=== PATIENT | female | born 1935 | race Caucasian/White ===

== ENCOUNTER → 2016-11-07 | Outpatient (CLI) | payer MEDICARE, BC ==
--- NOTE | 2016-11-08 15:38 | MM ---
Reason for exam: screening (asymptomatic). Last mammogram was performed 1 year and 7 months ago. History: Patient is postmenopausal and has history of other cancer at age 67. Benign excisional biopsy of the left breast, 1987. Took hormonal contraceptives for 2 years beginning at age 29. Physical Findings: A clinical breast exam by your physician is recommended on an annual basis and results should be correlated with mammographic findings. MG 3D Screening Mammo W/Cad Bilateral CC and MLO view(s) were taken. Prior study comparison: March 31, 2015, bilateral MG screening mammo w CAD. February 23, 2014, bilateral MG screening mammo w CAD. There are scattered fibroglandular densities. There is chronic nodularity bilaterally. Asymmetric breast tissue in the right breast. Very complex parenchymal pattern. ASSESSMENT: Incomplete: need additional imaging evaluation, BI-RAD 0 RECOMMENDATION: Ultrasound of the right breast. (upper outer quadrant, 5.5cm from nipple) [facility] will attempt to contact patient to return for ultrasound.
== END | disposition home or self-care (01) ==
LOC: RADMAMWWP 11:06
PROVIDERS: ATTEND Internal Medicine
DX: Z12.31 Encounter for screening mammogram for malignant neoplasm of breast (principal); R92.2 Inconclusive mammogram
CPT/HCPCS: 77063; G0202

== ENCOUNTER → 2016-11-26 | Outpatient (CLI) | payer MEDICARE, BC ==
--- NOTE | 2016-11-26 13:46 | USB ---
Reason for exam: additional evaluation requested from abnormal screening. History: Patient is postmenopausal and has history of other cancer at age 67. Benign excisional biopsy of the left breast, 1987. Took hormonal contraceptives for 2 years beginning at age 29. Physical Findings: Nurse did not find any significant physical abnormalities on exam. US Breast Workup Limited RT Right breast ultrasound demonstrates a 0.3 x 0.2 x 0.2cm too small to characterize lesion at 9 o'clock, a 0.3 x 0.3 x 0.3cm mixed lesion at 10 o'clock, a 0.4 x 0.3 x 0.2cm oval, cystic lesion at 10 o'clock, and a 0.5 x 0.3 x 0.2cm oval, cystic lesion at 12 o'clock. These results were verbally communicated with the patient and result sheet given to the patient on 11/26/16. ASSESSMENT: Probably benign, BI-RAD 3 RECOMMENDATION: Follow-up diagnostic mammogram and ultrasound of the right breast in 6 months.
== END | disposition home or self-care (01) ==
LOC: RADUSWWP 08:35
PROVIDERS: ATTEND Internal Medicine
DX: R92.8 Other abnormal and inconclusive findings on diagnostic imaging of breast (principal)

== ENCOUNTER → 2017-11-10 | Outpatient (CLI) | payer MEDICARE, BC ==
--- NOTE | 2017-11-10 11:30 | MM ---
Reason for exam: additional evaluation requested from prior study. Last mammogram was performed 1 year ago. History: Patient is postmenopausal and has history of other cancer at age 67. Benign excisional biopsy of the left breast, 1987. Took hormonal contraceptives for 2 years beginning at age 29. Physical Findings: Nurse did not find any significant physical abnormalities on exam. MG 3D Diag Mammo W/Cad JUAN DIEGO Bilateral CC and MLO view(s) were taken. Prior study comparison: November 07, 2016, bilateral MG 3d screening mammo w/cad. March 31, 2015, bilateral MG screening mammo w CAD. There are scattered fibroglandular densities. Asymmetric breast tissue in the left breast at 3 o'clock. These results were verbally communicated with the patient and result sheet given to the patient on 11/10/17. ASSESSMENT: Incomplete: need additional imaging evaluation, BI-RAD 0 RECOMMENDATION: Ultrasound of the left breast.
--- NOTE | 2017-11-10 11:32 | USB ---
Reason for exam: additional evaluation requested from abnormal screening. History: Patient is postmenopausal and has history of other cancer at age 67. Benign excisional biopsy of the left breast, 1987. Took hormonal contraceptives for 2 years beginning at age 29. US Breast Limited LT Left limited breast ultrasound including focal area of concern, retroareolar and axilla demonstrates a 0.4 x 0.5 x 0.3cm oval, cystic lesion at 3 o'clock, a 0.5 x 05 x 0.3cm lobular, cystic lesion at 3 o'clock, a hyperechoic calcifications at 4 o'clock and duct ectasia at the posterior nipple. These results were verbally communicated with the patient and result sheet given to the patient on 11/10/17. ASSESSMENT: Probably benign, BI-RAD 3 RECOMMENDATION: Follow-up diagnostic mammogram and ultrasound of the left breast in 6 months.
--- NOTE | 2017-11-10 15:22 | BD ---
EXAMINATION TYPE: Axial Bone Density DATE OF EXAM: 11/10/2017 COMPARISON: 2014 CLINICAL HISTORY: bone disorder Height: 5'3 Weight: 148 FRAX RISK QUESTIONS: History of Fracture in Adulthood: y Secondary Osteoporosis: RISK FACTORS HISTORY OF: Family History of Osteoporosis: y Postmenopausal woman: MEDICATIONS: Thyroid Medications: Which medication: Levothyroxine How Lon-6 years Additional Medications: cholesterol Additional History: skin cancer EXAM MEASUREMENTS: Bone mineral densitometry was performed using the [employer] System. Bone mineral density as measured about the Lumbar spine is: ----- L1-L4(G/cm2): 1.086 T Score Values are as follows: ----- L2: -1.8 ----- L3: -1.0 ----- L4: -0.2 ----- L1-L4: -1.0 Bone mineral density has: Decreased -0.8% since study of: 03/31/2015 Bone mineral density about the R hip (g/cm2): 0.969 Bone mineral density about the L hip (g/cm2): 0.883 T Score values are as follows: -----R Neck: -0.5 -----L Neck: -1.1 -----R Total: -0.5 -----L Total: -0.5 Bone mineral density has: Increased 1.3% since study of: 03/31/2015 IMPRESSION: Osteopenia (T Score between -2.5 and -1). There is slightly increased risk of fracture and the patient may be considered for treatment. Re-Screen 2-5 years. NOTE: T-SCORE=SD OF THE YOUNG ADULT MEAN.
== END | disposition home or self-care (01) ==
LOC: RADMAMWWP 09:12
PROVIDERS: ATTEND Internal Medicine
DX: R92.8 Other abnormal and inconclusive findings on diagnostic imaging of breast (principal); M85.80 Other specified disorders of bone density and structure, unspecified site
CPT/HCPCS: 77080; 77066; 76642; G0279; 77062

== ENCOUNTER → 2018-03-30 | Outpatient (CLI) | payer MEDICARE, BC ==
--- NOTE | 2018-03-31 10:22 | MM ---
Reason for exam: follow-up at short interval from prior study. Last mammogram was performed 5 months ago. History: Patient is postmenopausal and has history of other cancer at age 67. Benign excisional biopsy of the left breast, 1987. Took hormonal contraceptives for 2 years beginning at age 29. Physical Findings: Nurse did not find any significant physical abnormalities on exam. MG 3D Diag Mammo W/Cad LT CC, MLO, XCCL, spot compression MLO, and spot compression CC view(s) were taken of the left breast. Prior study comparison: November 10, 2017, bilateral MG 3d diag mammo w/cad JUAN DIEGO. November 07, 2016, bilateral MG 3d screening mammo w/cad. The breast tissue is heterogeneously dense. This may lower the sensitivity of mammography. Stable benign calcifications. Small nodule upper outer quadrant left breast 5.5cm from nipple. Ultrasound recommended. These results were verbally communicated with the patient and result sheet given to the patient on 03/30/18. ASSESSMENT: Incomplete: need additional imaging evaluation, BI-RAD 0 RECOMMENDATION: Ultrasound of the left breast.
--- NOTE | 2018-03-31 10:24 | USB ---
Reason for exam: additional evaluation requested from abnormal screening. History: Patient is postmenopausal, has history of other cancer at age 67, and has history of bilateral breast cancer. Benign excisional biopsy of the left breast, 1987. Took hormonal contraceptives for 2 years beginning at age 29. US Breast Limited LT Left limited breast ultrasound including focal area of concern, retroareolar and axilla demonstrates a 0.5 x 0.4 x 0.2cm cystic lesion at 12 o'clock, a 0.9 x 0.8 x 0.5cm irregular, solid, hypoechoic lesion at 1 o'clock for which a biopsy is recommended, a 0.5 x 0.3 x 0.3cm cystic lesion at 3 o'clock and a 0.5 x 0.5 x 0.2cm cystic lesion at the posterior nipple. These results were verbally communicated with the patient and result sheet given to the patient on 03/30/18. ASSESSMENT: Suspicious, BI-RAD 4 RECOMMENDATION: Ultrasound core biopsy of the left breast. Called Juliane with mammographic findings and has scheduled an appointment for the patient for 04/02/18 at 12:[address] Nash. Biopsy scheduled for 04/08/18 at 12:20. PRELIMINARY REPORT CALLED AND FAXED TO DR. NASH ON 03/31/18.
== END | disposition home or self-care (01) ==
LOC: RADMAMWWP 08:41
PROVIDERS: ATTEND Internal Medicine
DX: R92.8 Other abnormal and inconclusive findings on diagnostic imaging of breast (principal)
CPT/HCPCS: 77065; 76642; G0279; 77061

== ENCOUNTER → 2018-04-02 | Outpatient (CLI) | payer MEDICARE, BC ==
[2018-04-02 12:18] VITALS: BP 142/76; PULSE 98; BMI 24.9
--- NOTE | 2018-04-02 13:04 | P.GSHP ---
History of Present Illness H&P Date: 04/02/18 The patient is an 82-year-old white female who is status post bilateral screening mammogram in October 2017. The patient at that time was recommended to have a repeat left breast mammogram at 6 months time. This was recently performed on . On that study she was noted to have a small nodule in the upper outer quadrant of the left breast 5.5 cm from the nipple. An ultrasound was recommended. On the ultrasound the patient was noted to have a 0.5 cm cystic lesion at 12:00, a 0.9 cm irregular solid lesion at 1:00 for which biopsy was recommended, and a 0.5 cm cystic lesion at 3:00 and a 0.5 cm cystic lesion at the posterior nipple. The patient herself does not feel any lumps or nodules in her breasts. The left nipple has been inverted for many years. The patient has no history of trauma or infection of the breast. Family history: 1. niece; breast cancer, in 40's brothers daughter 2. patient with skin cancer Hormonal history menarche: 10 07/01 : 2, first at 25, breast fed: no BCP: 1 year hormones: none Past surgical history: 1. Skin cancers removed line 2. Colonoscopy 3. left breast biopsy Past medical history: none Social History: smoke: none alcohol: none drugs: none - Constitutional Constitutional: Denies chills, Denies fever - EENT Comment: wears glasses Ears: bilateral: decreased hearing Ears, nose, mouth and throat: Denies headache, Denies sore throat - Breasts Breasts: bilateral: as per HPI - Cardiovascular Cardiovascular: Denies chest pain, Denies shortness of breath - Respiratory Respiratory: Denies cough, Denies 7 - Gastrointestinal Gastrointestinal: Denies abdominal pain, Denies diarrhea, Denies nausea, Denies vomiting - Genitourinary (Female) Genitourinary: Denies dysuria, Denies hematuria - Menstruation Menstruation: Reports postmenopausal - Musculoskeletal Comment: osteopenia Musculoskeletal: Denies myalgias - Integumentary Comment: skin cancers - Neurological Neurological: Denies numbness, Denies weakness - Psychiatric Psychiatric: Denies anxiety, Denies depression - Endocrine Comment: hypothyroid Endocrine: Denies fatigue, Denies weight change - Hematologic/Lymphatic Comment: none - Allergic/Immunologic Allergic/Immunologic: Reports seasonal allergies Past Medical History Past Medical History: Hearing Disorder / Deafness, Osteoarthritis (OA), Skin Disorder, Thyroid Disorder Additional Past Medical History / Comment(s): skin cancers removed. on meds for thyroid disorder History of Any Multi-Drug Resistant Organisms: None Reported Past Surgical History: Breast Surgery, Tonsillectomy Smoking Status: Never smoker - Past Family History Father Family Medical History: Congestive Heart Failure (CHF) Mother Family Medical History: Congestive Heart Failure (CHF), Dementia, Hyperlipidemia Medications and Allergies Home Medications Medication Instructions Recorded Confirmed Type Ascorbic Acid [Vitamin C] 500 mg PO DAILY 04/01/18 04/02/18 History Aspirin [Adult Low Dose Aspirin EC] 81 mg PO DAILY 04/01/18 04/02/18 History Atorvastatin [Lipitor] 10 mg PO HS 04/01/18 04/02/18 History Calcium/Magnesium/Zinc 1 each PO DAILY 04/01/18 04/02/18 History [Bjktnpd-Qdrgtiypp-Zqwm Tablet] Levothyroxine Sodium [Synthroid] 25 mcg PO DAILY 04/01/18 04/02/18 History Vitamin E (Dl,Tocopheryl Acet) 400 unit PO DAILY 04/01/18 04/02/18 History [Vitamin E] Allergies Allergy/AdvReac Type Severity Reaction Status Date / Time codeine Allergy Rash/Hives Verified 04/01/18 13:17 monosodium glutamate [MSG] AdvReac Nausea & Verified 04/01/18 13:17 Vomiting & Diarrhea Surgical - Exam Vital Signs Pulse BP Pulse Ox 98 142/76 98 04/02/18 12:13 04/02/18 12:13 04/02/18 12:13 BMI 24.9 - General well developed, well nourished, no distress - Eyes normal ocular movement - ENT no hearing loss, no congestion - Neck no masses, trachea midline - Respiratory normal respiratory effort, clear to auscultation - Cardiovascular Rhythm: regular Heart Sounds: normal: S1, S2 - Abdomen Abdomen: soft, non tender, no guarding, no rigid, no rebound - Integumentary no rash, no abnormal pigmentation - Neurologic no disoriented, no combative - Musculoskeletal normal gait, normal posture - Psychiatric oriented to time, oriented to person, oriented to place, speech is normal, memory intact Breast examination: Right breast: Multi-positional exam no dominant mass or nodules of concern Right axilla: No adenopathy of concern Left breast: Multiple positional exam no dominant masses or nodules of concern, nipple is slightly inverted Left axilla: No adenopathy of concern Results Left breast mammogram and ultrasound results reviewed Assessment and Plan Assessment: Impression: 1. Radiographic abnormality left breast 2. Inverted nipple left breast chronic Plan: 1. Ultrasound-guided biopsy left breast 2. Follow-up after ultrasound-guided biopsy 3. Follow inverted nipple left breast. This is chronic in nature CC: Dr. Cardozo
== END ==
LOC: WWCWWP 11:49
PROVIDERS: ATTEND Surgery
DX: Z53.9 Procedure and treatment not carried out, unspecified reason (principal)

== ENCOUNTER → 2018-04-08 | Day surgery (SDC) | payer MEDICARE, BC ==
[2018-04-08 11:43] VITALS: RESP 12
[2018-04-08 13:01] VITALS: BP 145/81; PULSE 96; TEMP 98.6
--- NOTE | 2018-04-08 13:05 | USB ---
EXAMINATION TYPE: US biopsy breast VAD LT, MG diagnostic mammo LT wo CAD DATE OF EXAM: 04/08/2018 CLINICAL HISTORY: R92.8 Abnormal Mammogram. TECHNIQUE: Ultrasound guided core biopsy of left breast. COMPARISON: 03/30/18 FINDINGS: The procedure of ultrasound guided core biopsy was explained to the patient. Benefits, alternatives, and risks were discussed. An informed consent was then obtained. Preprocedural timeout was performed. The patient was placed in supine positioning for imaging and for the procedure. The overlying skin was prepped and draped in usual sterile fashion. 10 cc of lidocaine buffered with bicarbonate was used as anesthetic into the skin and 7 cc of lidocaine with epinephrine subcutaneous tissue up to the 1.1 x 0.6 x 0.6 cm mass at the 1:00 position within the left breast. Under ultrasound guidance, a 12-gauge vacuum assisted biopsy gun device was used to obtain 5 core samples. Following this, a coil-shaped biopsy marker was left in lesion. This was placed approximately 4 mm deep and medial to the mass. The patient tolerated the procedure well without any immediate complication. The patient was kept in the radiology department for short stay after the procedure and then discharged home in stable condition. IMPRESSION: Successful, uncomplicated ultrasound guided core biopsy of the 1.1 x 0.6 x 0.6 cm suspicious mass at the 1:00 position within the left breast with biopsy marker noted to be 4 mm from the mass on the last sonographic image, full pathology results to follow. 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 See Surgical Pathology Cancer Case Summary. Recommendation Surgical consult of the left breast. (therapy and follow up) [facility]
== END | disposition home or self-care (01) ==
LOC: RADUSWWP 11:19
PROVIDERS: ATTEND Surgery
DX: C50.912 Malignant neoplasm of unspecified site of left female breast (principal); Z88.5 Allergy status to narcotic agent; Z88.8 Allergy status to other drugs, medicaments and biological substances
CPT/HCPCS: 88305; 77065; 19083; A4648; J2001; 88341; 88342

== ENCOUNTER → 2018-04-16 | Outpatient (CLI) | payer MEDICARE, BC ==
[2018-04-16 10:35] VITALS: BP 145/76; PULSE 96; RESP 16; TEMP 98; BMI 24.9
--- NOTE | 2018-04-16 11:02 | P.PN ---
Subjective Progress Note Date: 04/16/18 Principal diagnosis: Left breast cancer, status post left breast ultrasound core biopsy The patient is an 82-year-old white female status post left breast ultrasound core biopsy. Pathology revealed an approximately 1.1 cm invasive ductal carcinoma. This was grade 1, ER/WI positive, HER-2 negative. The patient has no complaints in the immediate postoperative period related to the core biopsy. Objective - Constitutional General appearance: Present: average body habitus - EENT Eyes: Present: EOMI ENT: Present: hearing grossly normal Ears: bilateral: normal - Neck Neck: Present: normal ROM - Respiratory Respiratory: bilateral: CTA - Cardiovascular Rhythm: regular Heart sounds: normal: S1, S2 - Gastrointestinal General gastrointestinal: Present: soft - Integumentary Integumentary Comment(s): Left breast: Well-healed scar left breast from prior biopsy Left breast mild ecchymosis at site of prior core biopsy No dominant masses or nodules of concern Assessment and Plan Assessment: Impression: 1. T1 N0 M0 ER/WI positive HER-2/negro negative left breast cancer. Plan: 1. Left breast needle localization and sentinel node injection lumpectomy and sentinel node biopsy, possible axillary node dissection The patient's pathology and surgical options have been discussed in detail with the patient and her . They understand the option of lumpectomy versus lumpectomy plus radiation therapy, and sentinel node biopsy possible axillary node dissection. They also understand that the option of a mastectomy. At this time they wish to proceed with a lumpectomy if possible. The patient and her understand risks and benefits including bleeding and infection reaction to the anesthetic and wished to proceed. They're anxious to have the procedure done as soon as possible as they would like to leave for [place]. I have asked if there is a hospital near the area where they will be staying and they have told me there is not. We will therefore schedule the procedure in the near future. Cc: Dr. Georges
== END | disposition home or self-care (01) ==
LOC: WWCWWP 09:14
PROVIDERS: ATTEND Surgery
DX: Z53.9 Procedure and treatment not carried out, unspecified reason (principal)

== ENCOUNTER 2018-05-05 09:22 | Day surgery (SDC) | payer MEDICARE, BC ==
[2018-04-30 10:40] VITALS: BMI 24.9
[~2018-05-05 09:22] MED LIST: DEXAMETHASONE SOD PHOSPHATE 10 MG/ML 1 ML VIAL IV ONE; HEPARIN SODIUM,PORCINE 5,000 UNIT/ML 1 ML VIAL SQ ONE; LACTATED RINGERS 1,000 ML IV SCH; LIDOCAINE 1% 20 ML VIAL (10MG/ML) FOR IV START INTRADERMA PRN; MIDAZOLAM 2 MG/2 ML VIAL IV PRN; ONDANSETRON 4 MG/2 ML VIAL IVP ONE; Pre Op ABX Message 1 EACH MISC MISCELLANE ONE; fentaNYL (PF) 50 MCG/ML 2 ML AMP IV PRN
[2018-05-05] MEDS ORDERED: SODIUM BICARB 4% 5 ML VIAL (0.48 MEQ/ML) MISCELLANE ONE (11:06)
[2018-05-05] MEDS ORDERED: LIDOCAINE 1% INJ 10MG/ML (20 ML MDV) SQ ONE (11:06)
--- NOTE | 2018-05-05 11:44 | NM ---
EXAMINATION TYPE: NM sentinel node injection DATE OF EXAM: 05/05/2018 COMPARISON: NONE INDICATION: Abnormal mammogram. Informed consent was obtained. A timeout was performed. The area around the left nipple was cleansed with alcohol. 532 uCi technetium lymphocele was adminis tered in the upper outer quadrant subdermal single injection. The patient tolerated the procedure kathy y well. IMPRESSIONS: 1.. Successful injection for sentinel node evaluation.
[2018-05-05] MEDS ORDERED: HEPARIN SODIUM,PORCINE 5,000 UNIT/ML 1 ML VIAL SQ ONE (11:53)
--- NOTE | 2018-05-05 11:53 | P.NAPBC ---
NAPBC Queries - NAPBC Queries Was patient's case review presented at [facility] tumor board? If no, comment.: Yes Was patient's pathology reviewed at [facility]? If no, comment.: Yes Was breast conservation surgery offered? If no, comment.: Yes Was sentinel node biopsy offered? If no, comment.: Yes Was diagnosis confirmed by percutaneous core biopsy? If no, comment.: Yes If mastectomy patient, was a preop referral to a reconstructive surgeon offered? : Yes
[2018-05-05] MEDS ORDERED: LIDOCAINE (PF) 10 MG/ML 2 ML VIAL SQ ONE ×2 (14:26)
[2018-05-05] MEDS ORDERED: fentaNYL (PF) 50 MCG/ML 2 ML AMP ONE (14:29)
[2018-05-05] MEDS ORDERED: ROCURONIUM BROMIDE 10 MG/ML 10 ML VIAL IV ONE (14:29)
[2018-05-05] MEDS ORDERED: ePHEDrine SULFATE/0.9% NACL/PF 50 MG/5 ML SYRINGE IV ONE (14:29)
[2018-05-05] MEDS ORDERED: LIDOCAINE 1% INJ 10MG/ML (20 ML MDV) ONE (14:29)
[2018-05-05] MEDS ORDERED: PHENYLEPHRINE-0.9% NACL SYG 1 MG/10 ML SYRINGE ONE (14:29)
[2018-05-05] MEDS ORDERED: PROPOFOL 10 MG/ML 20 ML VIAL IV ONE (14:29)
[2018-05-05] MEDS ORDERED: NEOSTIGMINE 1 MG/ML 10 ML VIAL ONE (14:29)
[2018-05-05] MEDS ORDERED: GLYCOPYRROLATE 0.2 MG/ML 2 ML VIAL ONE (14:29)
[2018-05-05] MEDS ORDERED: SODIUM CHLORIDE 0.9% 50 ML with ceFAZolin 2,000 MG IV ONE ×2 (14:51)
[2018-05-05] MEDS ORDERED: LACTATED RINGERS 1,000 ML IV ONE (15:03)
--- NOTE | 2018-05-05 16:19 | P.OP ---
Date of Procedure: 05/05/18 Preoperative Diagnosis: Left breast cancer invasive ductal carcinoma Postoperative Diagnosis: Same Procedure(s) Performed: Left breast needle localization lumpectomy, sentinel node biopsy Anesthesia: MANOJA Surgeon: Essence Nash Estimated Blood Loss (ml): 15 IV fluids (ml): 600 Pathology: other ([place] node, axillary tissue, lumpectomy specimen left breast) Condition: stable Disposition: PACU Indications for Procedure: Left breast invasive ductal carcinoma Operative Findings: Dense breast tissue Description of Procedure: The patient is an 82-year-old white female who presented with a mammographic abnormality in the left breast. A core biopsy was positive for invasive ductal carcinoma. The patient was felt to be a good candidate for a lumpectomy and sentinel node biopsy. This is what she and her wished to have done. The patient was brought to the operating room and following induction of anesthesia the left breast and axilla were prepped and draped in a sterile fashion. Using the [place] counter the place of greatest radioactivity in the axilla was identified. An incision was made over this location. Dissection was carried down into the axillary area. 3 lymph nodes with increased radioactivity were identified. The first had a 10 second radioactive count was approximately 30,000. The lymph node was removed and sent for frozen section evaluation. This was negative. 2 additional lymph nodes had increased radioactive counts. One had a radioactive count of approximately 5000 and the other radioactive count approximately 2000 at 10 seconds. The background radioactivity was 50 at 10 seconds. The additional lymph nodes were sent for permanent section as well as a small amount of additional axillary tissue. After we were assured that hemostasis was attained the area of the breast was approached. The localization needle was able to be accessed through the axillary incision. Using the lighted retractor the tissue was elevated and the needle was identified. The tissue around the needle was grasped using an [place] clamp. Careful dissection around the needle was performed. The dissection was carried posteriorly to the pectoralis major muscle. The dissection was lateral to the area of the axillary tissue. After the tissue had been removed it was sent to x-ray and radiographic confirmation the area of concern about removed was obtained. Following this both wounds were well irrigated. A sizer was used to determine the size of a Biozorb to be placed in the lumpectomy cavity. A 2 x 3 cm Biozorb was chosen. This was placed in the cavity and secured to the surrounding tissues using 3-0 Vicryl suture. Prior to securing this the surrounding tissues were mobilized and an optical plastic fashion. The tissue mobilization was approximately 5 cm x 3 cm. After we were sure that hemostasis was attained the deep tissues were closed using 3-0 Vicryl suture. The skin was closed using 4-0 Monocryl. The patient tolerated procedure in stable condition. All instrument and sponge counts were correct at the end of the case.
--- NOTE | 2018-05-05 16:22 | P.DS ---
Providers Attending physician: Essence Nash Primary care physician: Nikos Cardozo Plan - Discharge Summary New Discharge Prescriptions: No Action Levothyroxine Sodium [Synthroid] 25 mcg PO DAILY Atorvastatin [Lipitor] 10 mg PO HS Vitamin E (Dl,Tocopheryl Acet) [Vitamin E] 400 unit PO DAILY Ascorbic Acid [Vitamin C] 500 mg PO DAILY Aspirin [Adult Low Dose Aspirin EC] 81 mg PO DAILY Calcium/Magnesium/Zinc [Hxmazyb-Qvtutskns-Ilxo Tablet] 1 each PO DAILY Discharge Medication List Ascorbic Acid [Vitamin C] 500 mg PO DAILY 04/01/18 [History] Aspirin [Adult Low Dose Aspirin EC] 81 mg PO DAILY 04/01/18 [History] Atorvastatin [Lipitor] 10 mg PO HS 04/01/18 [History] Calcium/Magnesium/Zinc [Kystims-Qrorbyxaj-Ukan Tablet] 1 each PO DAILY 04/01/18 [History] Levothyroxine Sodium [Synthroid] 25 mcg PO DAILY 04/01/18 [History] Vitamin E (Dl,Tocopheryl Acet) [Vitamin E] 400 unit PO DAILY 04/01/18 [History] Follow up Appointment(s)/Referral(s): Essence Nash MD [STAFF PHYSICIAN] - 1 Week Activity/Diet/Wound Care/Special Instructions: Do not drive today Do not drive if taking opioid pain medication Wear bra at all times May remove brought to shower after 48 hours Discharge Disposition: HOME SELF-CARE
[2018-05-05 16:43] VITALS: TEMP 97.4
[2018-05-05 18:09] VITALS: RESP 18
[2018-05-05 18:24] VITALS: BP 130/82; PULSE 90
--- NOTE | 2018-05-05 20:45 | MM ---
EXAMINATION TYPE: MG pre op needle loc LT DATE OF EXAM: 05/05/2018 COMPARISON: NONE CLINICAL HISTORY: Abnormal mammogram TECHNIQUE: Needle localization with wire placement and surgical excision of area of concern in the le ft breast. FINDINGS: The procedure of needle localization with wire placement and than surgical excision was exp lained to the patient. Benefits, alternatives, and risks were discussed. An informed consent was th en obtained. Timeout was performed. The shortest pathway for procedure was chosen. Shortest pathway was cc approach. The overlying skin was prepped and draped in usual sterile fashion. Lidocaine buffered with bicarbonate was used as ane sthetic into the skin and subcutaneous tissue up to the level of area of concern. A 7 cm needle was used. It was placed via a superior approach under mammographic guidance. Subsequent 90 degrees mamm ogram show the needle to be in satisfactory position relative to the targeted area. At this point, w hernando was placed and the needle was withdrawn. The wire was fixed to patient's skin. Images were wan ed for surgeon. The patient tolerated the procedure well without any immediate complication. The patient was kept in the radiology department for short stay after the procedure and then taken to surgery for surgical e xcision. Core marker and wire are identified in specimen mammogram. The patient was kept in [facility] for short stay after the procedure and then discharged home in stable condition. IMPRESSION: 1. Successful wire localization and excision. Recommendations: 1. Recommendations are pending pathology results.
== END 2018-05-05 18:34 | disposition home or self-care (01) ==
LOC: OR 09:22
PROVIDERS: ATTEND Surgery
DX: C50.912 Malignant neoplasm of unspecified site of left female breast (principal); E78.5 Hyperlipidemia, unspecified; K21.9 Gastro-esophageal reflux disease without esophagitis; E07.9 Disorder of thyroid, unspecified; Z79.899 Other long term (current) drug therapy; Z79.890 Hormone replacement therapy; Z79.82 Long term (current) use of aspirin; Z17.0 Estrogen receptor positive status [ER+]
CPT/HCPCS: 19301; 38500; 19281; 38792; 88342; 88331; 88332; 88307; 88341; 76098; A4648; A9520; J2001 ×2; J1644; J1100; J2405; J0690

== ENCOUNTER → 2018-05-14 | Outpatient (CLI) | payer MEDICARE, BC ==
[2018-05-14 16:25] VITALS: BP 148/80; PULSE 100; RESP 18; TEMP 97.9; BMI 24.9
--- NOTE | 2018-05-14 17:42 | P.PN ---
Progress Note - Text Progress Note Date: 05/14/18 Jasmine is an 82-year-old white female who presents for postoperative evaluation. She underwent a left breast needle localization lumpectomy and sentinel node biopsy on . Pathology revealed that the sentinel node was negative for malignancy. 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 The margins were negative for invasive malignancy. The DCIS closely approximated the medial and superior margins in multiple sites. Extensive lobular neoplasia was also identified. The patient's case was presented at tumor Board where it was recommended that she undergo at minimum re-excision of the superior and medial margins. The patient presents with some complaints of ecchymosis at the lumpectomy site. She has no evidence of infection. She is otherwise doing well. Physical examination: Incision is clean and dry, no evidence of infection Ecchymosis at the lateral aspect of the breast which is resolving No discrete hematoma I have had a long discussion with the patient and her regarding the pathologic findings. The tumor is multifocal with at least 2 areas of multifocal invasive cancer. 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 I've also discussed with them that at tumor board although the margins were negative for invasive cancer, it was recommended she undergo reexcision of the superior and medial margins. The patient and her do not want reexcision, they wish mastectomy to be performed. We have discussed risks and benefits of mastectomy and they wish to proceed. I've also discussed with them the possibility of reconstruction and they're not interested. They wish mastectomy to be performed at the soonest possible time. This will be scheduled in the near future. They understand there may not be residual tumor in the mastectomy specimen however, they wish to proceed. Risks include bleeding, infection, possible reaction to the anesthetic as well as hematoma were discussed. CC: Juliane
== END | disposition home or self-care (01) ==
LOC: WWCWWP 16:09
PROVIDERS: ATTEND Surgery
DX: Z53.9 Procedure and treatment not carried out, unspecified reason (principal)

== ENCOUNTER 2018-05-19 06:58 | Day surgery (SDC) | payer MEDICARE, BC ==
[2018-05-15 14:40] VITALS: BMI 24.9
[~2018-05-19 06:58] MED LIST changes: -DEXAMETHASONE SOD PHOSPHATE 10 MG/ML 1 ML VIAL IV ONE; -LACTATED RINGERS 1,000 ML IV SCH; -LIDOCAINE 1% 20 ML VIAL (10MG/ML) FOR IV START INTRADERMA PRN; -MIDAZOLAM 2 MG/2 ML VIAL IV PRN; -ONDANSETRON 4 MG/2 ML VIAL IVP ONE; -fentaNYL (PF) 50 MCG/ML 2 ML AMP IV PRN
[2018-05-19] MEDS ORDERED: LACTATED RINGERS 1,000 ML IV ONE (08:16)
[2018-05-19] MEDS ORDERED: LIDOCAINE 1% 20 ML VIAL (10MG/ML) FOR IV START SQ ONE (08:17)
[2018-05-19 08:18] LABS: Glucose,Whole Blood 122 mg/dL (75-99)
[2018-05-19] MEDS ORDERED: ONDANSETRON 4 MG/2 ML VIAL IVP ONE ×3 (08:18→14:16)
[2018-05-19] MEDS ORDERED: DEXAMETHASONE SOD PHOSPHATE 10 MG/ML 1 ML VIAL IV ONE (08:19)
[2018-05-19] MEDS ORDERED: HEPARIN SODIUM,PORCINE 5,000 UNIT/ML 1 ML VIAL SQ ONE (08:30)
[2018-05-19] MEDS ORDERED: ROCURONIUM BROMIDE 10 MG/ML 10 ML VIAL IV ONE (09:25)
[2018-05-19] MEDS ORDERED: fentaNYL (PF) 50 MCG/ML 2 ML AMP ONE (09:25)
[2018-05-19] MEDS ORDERED: PHENYLEPHRINE-0.9% NACL SYG 1 MG/10 ML SYRINGE ONE (09:25)
[2018-05-19] MEDS ORDERED: SUCCINYLCHOLINE CHLORIDE 100 MG/5 ML SYR IV ONE (09:25)
[2018-05-19] MEDS ORDERED: ePHEDrine SULFATE/0.9% NACL/PF 50 MG/5 ML SYRINGE IV ONE (09:25)
[2018-05-19] MEDS ORDERED: NEOSTIGMINE 1 MG/ML 10 ML VIAL ONE (09:25)
[2018-05-19] MEDS ORDERED: GLYCOPYRROLATE 0.2 MG/ML 2 ML VIAL ONE (09:25)
[2018-05-19] MEDS ORDERED: MIDAZOLAM 2 MG/2 ML VIAL ONE (09:25)
[2018-05-19] MEDS ORDERED: LIDOCAINE 1% INJ 10MG/ML (20 ML MDV) ONE (09:25)
[2018-05-19] MEDS ORDERED: PROPOFOL 10 MG/ML 20 ML VIAL IV ONE (09:25)
--- NOTE | 2018-05-19 09:47 | P.NAPBC ---
NAPBC Queries - NAPBC Queries Was patient's case review presented at [facility] tumor board? If no, comment.: Yes Was patient's pathology reviewed at [facility]? If no, comment.: Yes Was breast conservation surgery offered? If no, comment.: Yes Was sentinel node biopsy offered? If no, comment.: Yes (done and negative for cancer) Was diagnosis confirmed by percutaneous core biopsy? If no, comment.: Yes ( lumpectomy close margins for DCIS, re-excision recommended patient wishes m) If mastectomy patient, was a preop referral to a reconstructive surgeon offered? : No (offered but patient refused)
[2018-05-19] MEDS ORDERED: SODIUM CHLORIDE 0.9% 50 ML with ceFAZolin 2,000 MG IV ONE ×2 (10:00)
[2018-05-19] MEDS ORDERED: HYDROmorphone 1 MG/ML 1 ML SYRINGE IV PRN (12:08)
[2018-05-19] MEDS ORDERED: ONDANSETRON 4 MG/2 ML VIAL IVP PRN (12:08)
[2018-05-19] MEDS ORDERED: HYDROcodone/APAP 5-325MG 1 EACH TAB PO PRN (12:08)
[2018-05-19] MEDS ORDERED: NALOXONE 0.4 MG/ML 1 ML VIAL IV PRN (12:08)
[2018-05-19] MEDS ORDERED: CALCIUM CARBONATE 500 MG CHEWABLE PO PRN (12:08)
--- NOTE | 2018-05-19 12:08 | P.OP ---
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 The lumpectomy was done for an invasive ductal carcinoma. On pathology although the invasive cancer was completely removed there were noted to be multifocal sites of ductal carcinoma in situ approximating the superior and medial margin. The patient was given the option of reexcision however she wished for mastectomy. We discussed reconstruction and she was not interested. Operative Findings: Hematoma at lumpectomy site, dense breast tissue Description of Procedure: The patient is an 82-year-old white female status post left breast lumpectomy and sentinel node biopsy. Pathology revealed that the area of concern which was an invasive ductal carcinoma had been completely removed however the superior and medial margins had ductal carcinoma in situ in close proximity. It was therefore recommended that the patient undergo reexcision of the area. The patient however did not want reexcision and opted for a mastectomy. She was given the option of reconstruction and did not want to see a plastic surgeon. The patient was taken to the operating room and following induction of general anesthesia the left breast was prepped and draped in a sterile fashion. Marking pen was used to wan the incision site for superior and inferior skin flaps. Superior flap was developed first. Incision was carried down through the skin and subcutaneous tissue to the breast tissue. The superior flap was developed. This carried down to the pectoralis major muscle. There was noted to be hematoma in the lateral aspect of the breast after lumpectomy site. The inferior flap was then developed. An incision was made and carried through the skin and subcutaneous tissue to the breast tissue. The inferior flap was developed. The breast was then resected from medial to lateral being careful to maintain hemostasis using the electrocautery device. We also used the Harmonic scalpel as needed. The breast tissue was dissected posterior to the old lumpectomy site. Again there was a hematoma noted to be present in the biopsy cavity. This was dissected lateral to the area of the axilla and the area of the cavity which contained hematoma was dissected free and removed with the specimen. After assured that hemostasis was attained Surgicel powder was applied to the area. Again the wound was examined for hemostasis and was noted to be without any evidence of bleeding. 2 Hai-De drains were placed in the superior one was in the axillary lateral area and the inferior one was under the skin flaps. The skin was closed in the subcutaneous tissue using a 3-0 Vicryl suture. This was followed by closure of the subcuticular area with a 4-0 Monocryl. The drains were secured with a nylon suture. All instrument and sponge counts were correct at the end of the case. The patient tolerated the procedure in stable condition. The drains were holding suction with no difficulty.
[2018-05-19] MEDS ORDERED: KETOROLAC 30 MG/ML 1 ML VIAL IVP ONE (13:27)
[2018-05-19] MEDS: DEXTROSE 5%-0.45% NACL 1,000 ML IV SCH (15:27)
[2018-05-19] MEDS: HEPARIN SODIUM,PORCINE 5,000 UNIT/ML 1 ML VIAL SQ SCH (20:05)
[2018-05-20] MEDS: DEXTROSE 5%-0.45% NACL 1,000 ML IV SCH ×2 (00:01→00:32)
[2018-05-20 01:06] VITALS: PULSE 92
[2018-05-20 07:31] VITALS: BP 106/63; RESP 18; TEMP 97.6
--- NOTE | 2018-05-20 08:31 | P.PN ---
Subjective Progress Note Date: 05/20/18 Principal diagnosis: Left breast cancer Dilcia is an 82-year-old white female who is status post left breast mastectomy. She initially underwent a lumpectomy which was noted on pathologic evaluation to have multiple foci of ductal carcinoma in situ approximating the superior and medial margin. She thus opted to undergo a mastectomy. She was not interested in reconstruction. At this time she is doing well without any complaints. She is tolerating her diet without difficulty. Objective - Vital Signs Vital signs: Vital Signs Temp 97.6 F 05/20/18 07:00 Pulse 92 05/20/18 07:00 Resp 18 05/20/18 07:00 BP 106/63 05/20/18 07:00 Pulse Ox 96 05/20/18 07:00 Intake & Output 05/19/18 05/20/18 05/20/18 18:59 06:59 18:59 Intake Total 1000 1000 Output Total 40 25 Balance 960 975 Weight 65.771 kg Intake: IV 1000 Intake, IV Titration 1000 Amount Dextrose 5%-0.45% NaCl 1, 1000 000 ml @ 100 mls/hr IV . Q10H ABIGAIL Rx#:[id number] Output: Drainage 10 25 Left Lateral Chest 0 Left Medial Chest 10 25 Estimated Blood Loss 30 Other: Voiding Method Toilet # Voids 2 - Constitutional General appearance: Present: average body habitus - EENT Eyes: Present: EOMI - Neck Neck: Present: normal ROM - Respiratory Respiratory: bilateral: CTA - Cardiovascular Rhythm: regular Heart sounds: normal: S1, S2 - Integumentary Integumentary Comment(s): Incision clean and dry No evidence of hematoma OCTAVIA #10 output OCTAVIA #2 15 mL serosanguineous - Psychiatric Psychiatric: Present: A&O x's 3, appropriate affect, intact judgment & insight Assessment and Plan Assessment: Impression: 1. Postop day #1 left mastectomy 2. Patient doing well Plan: 1. Discharge home to be followed as an outpatient 2. Follow-up with Dr. Vickers in 1 week 3. Teach drain care 4. Patient is going to have home health care, this has been requested by her daughter
--- NOTE | 2018-05-20 08:33 | P.DS ---
Providers Attending physician: Essence Nash Primary care physician: Nikos Cardozo Plan - Discharge Summary Discharge Rx Participant: Yes New Discharge Prescriptions: No Action Levothyroxine Sodium [Synthroid] 25 mcg PO DAILY Atorvastatin [Lipitor] 10 mg PO W/SUPPER Vitamin E (Dl,Tocopheryl Acet) [Vitamin E] 400 unit PO DAILY Ascorbic Acid [Vitamin C] 500 mg PO DAILY Aspirin [Adult Low Dose Aspirin EC] 81 mg PO DAILY Calcium/Magnesium/Zinc [Ockdiji-Afonvzpuy-Ubqb Tablet] 1 each PO DAILY HYDROcodone/APAP 5-325MG [Farner 5-325] 0.5 tab PO Q6HR PRN PRN Reason: Pain Discharge Medication List Ascorbic Acid [Vitamin C] 500 mg PO DAILY 04/01/18 [History] Aspirin [Adult Low Dose Aspirin EC] 81 mg PO DAILY 04/01/18 [History] Atorvastatin [Lipitor] 10 mg PO W/SUPPER 04/01/18 [History] Calcium/Magnesium/Zinc [Pfmaloy-Ocsswdzqu-Rbml Tablet] 1 each PO DAILY 04/01/18 [History] Levothyroxine Sodium [Synthroid] 25 mcg PO DAILY 04/01/18 [History] Vitamin E (Dl,Tocopheryl Acet) [Vitamin E] 400 unit PO DAILY 04/01/18 [History] HYDROcodone/APAP 5-325MG [Farner 5-325] 0.5 tab PO Q6HR PRN 05/15/18 [History] Follow up Appointment(s)/Referral(s): Essence Nash MD [STAFF PHYSICIAN] - 1 Week Activity/Diet/Wound Care/Special Instructions: [facility] [phone] until seen by Dr. Rancho Thompson Surya wrap at all times unless and shower Patient may shower after 48 hours Discharge Disposition: HOME SELF-CARE
[2018-05-20] MEDS: HEPARIN SODIUM,PORCINE 5,000 UNIT/ML 1 ML VIAL SQ SCH (09:10)
== END 2018-05-20 10:34 | disposition home or self-care (01) ==
LOC: OR 06:58 → 4SSUR 14:21 → OR 05-20 10:34
PROVIDERS: ATTEND Surgery
DX: D05.12 Intraductal carcinoma in situ of left breast (principal); E78.5 Hyperlipidemia, unspecified; Z79.82 Long term (current) use of aspirin; Z79.890 Hormone replacement therapy; Z79.899 Other long term (current) drug therapy; Z88.5 Allergy status to narcotic agent; Z91.09 Other allergy status, other than to drugs and biological substances
CPT/HCPCS: 19303; 88307; J2250; J1644 ×2; J1100; J2710; J2405; J2001; J3010; J1885; J0690; J2370; J0330; J2704

== ENCOUNTER → 2018-05-29 | Outpatient (CLI) | payer MEDICARE, BC ==
[2018-05-29 16:35] VITALS: BP 149/84; PULSE 98; RESP 18; TEMP 98; BMI 24.9
--- NOTE | 2018-05-29 17:02 | P.PN ---
Subjective Progress Note Date: 05/29/18 Principal diagnosis: Left breast cancer Jasmine is an 82-year-old white female who underwent a lumpectomy and sentinel node biopsy of the left side for in invasive ductal carcinoma diagnosed by core biopsy. The lesion was ER/OH positive and HER-2/negro negative. The pathology from the lumpectomy revealed approximately 8 mm invasive ductal component the multifocal disease and multifocal DCIS with lobular disease as well. The patient therefore opted for a mastectomy. Pathology from the mastectomy did not reveal any murmur invasive ductal or ductal carcinoma in situ. The patient at this time is doing well without complaints. She did have a period with some burning on her inner arm but that has resolved. Her OCTAVIA output is serous. Objective - Vital Signs Vital signs: Vital Signs Temp 98 F 05/29/18 16:25 Pulse 98 05/29/18 16:25 Resp 18 05/29/18 16:25 BP 149/84 05/29/18 16:25 Pulse Ox 98 05/29/18 16:25 Intake & Output 05/28/18 05/29/18 05/29/18 18:59 06:59 18:59 Weight 65.771 kg - Constitutional General appearance: Present: average body habitus - EENT Eyes: Present: EOMI ENT: Present: hearing grossly normal - Neck Neck: Present: normal ROM - Respiratory Respiratory: bilateral: CTA - Cardiovascular Rhythm: regular Heart sounds: normal: S1, S2 - Integumentary Integumentary Comment(s): Incision left chest wall clean and dry. OCTAVIA output drainage from 1 minimal OCTAVIA output drainage and per to approximately 30 mL for several days, serous in nature - Musculoskeletal Musculoskeletal: Present: gait normal - Psychiatric Psychiatric: Present: A&O x's 3, appropriate affect, intact judgment & insight Assessment and Plan Assessment: Impression: 1. Stage IA left breast cancer 2. OCTAVIA drains to be removed Plan: 1. Removal of OCTAVIA drains 2. Plan with medical oncology 3. Follow-up here prior to leaving for [place] and then follow-up in 4 months I discussed with the patient and her her pathology report. I've also stated that medical oncology will most likely recommend an antiestrogen medication. They will see medical oncology next week. I have discussed with them that she may develop a seroma after removal of the OCTAVIA drains in which case I would be happy to see her and aspirate the seroma. They understand and will follow-up in 2 weeks. CC: Dr. Cardozo
== END ==
LOC: WWCWWP 16:21
PROVIDERS: ATTEND Surgery
DX: Z53.9 Procedure and treatment not carried out, unspecified reason (principal)

== ENCOUNTER → 2018-06-05 | Outpatient (CLI) | payer MEDICARE, BC ==
[2018-06-05 11:53] VITALS: BP 161/76; PULSE 100; RESP 18; TEMP 96.9; BMI 24.7
--- NOTE | 2018-06-05 12:08 | P.PN ---
Progress Note - Text Progress Note Date: 06/05/18 Jasmine is an 82-year-old white female who is status post left mastectomy and 2017. Postoperatively she has done well but called that she had some swelling of the mastectomy site and a home health care worker for this was most likely consistent with a seroma. The patient does not give any history of any fever or evidence of any infection. Physical exam: Area of the left mastectomy site incision is clean and dry with no evidence of any infection. There does appear to be a seroma present. The patient wishes the seroma to be aspirated. Aspiration of seroma: The seroma was milked to the medial aspect of the incision. The skin was prepped using Betadine. An 18-gauge needle was utilized to aspirate a proximally 60 mL of fluid. The fluid was serosanguineous in nature. The patient tolerated the procedure in stable condition. The patient will follow up on June 12 and I discussed with her that she may have recurrence of the seroma and we may need to be aspirate this.
== END ==
LOC: WWCWWP 11:30
PROVIDERS: ATTEND Surgery
DX: Z53.9 Procedure and treatment not carried out, unspecified reason (principal)

== ENCOUNTER → 2018-06-12 | Outpatient (CLI) | payer MEDICARE, BC ==
[2018-06-12 12:34] VITALS: BP 149/75; PULSE 102; RESP 18; TEMP 98.3; BMI 24.7
--- NOTE | 2018-06-12 13:00 | P.PN ---
Progress Note - Text Progress Note Date: 06/12/18 Patient is an 82-year-old white female status post left mastectomy, April 2018. She was seen approximately a week ago were a seroma was drained from the left mastectomy site. At this time she comes in with recurrent seroma. Additionally she has recently seen Dr. Germain from medical oncology and was started on an antiestrogen therapy. Physical examination: Left mastectomy site with seroma plan aspiration of seroma The area where aspiration was to be performed was prepped using Betadine. An 18 -gauge syringe was introduced into the seroma. Proximally 100 mL of straw- colored fluid was withdrawn with resolution of the seroma. The patient tolerated this in stable condition. Additionally at the lateral aspect of the incision it appeared that there was a small suture that was extruding and this was cut. The patient did well and will return next week if she has any concerns. Otherwise the patient is traveling to [place] and will follow up in 4 months.
== END ==
LOC: WWCWWP 11:44
PROVIDERS: ATTEND Surgery
DX: Z53.9 Procedure and treatment not carried out, unspecified reason (principal)

== ENCOUNTER → 2018-10-16 | Outpatient (CLI) | payer MEDICARE, BC ==
[2018-10-16 09:34] VITALS: BP 168/72; PULSE 92; RESP 18; TEMP 96.3; BMI 24.0
--- NOTE | 2018-10-16 10:21 | P.PN ---
Subjective Progress Note Date: 10/16/18 Principal diagnosis: left breast mastectomy Jasmine is an 83-year-old white female who is status post a left breast mastectomy performed on 05-19-18. She previously had a lumpectomy on . On the lumpectomy specimen there was DCIS and multifocal disease identified. The DCIS was at or near the margin and therefore she opted to have a mastectomy. The mastectomy specimen did not reveal residual cancer. The tumor stage was a T1 N0 M0 G2 ER/GA positive and HER-2 negative. She did not have any chemotherapy, radiation therapy, she is on hormonal therapy. She was seen by Dr. Germain. The patient is recently returning from [place]. She was in [place] for approximately 2 and half months. She developed a seroma at the mastectomy site and saw a physician while in [place]. A drain was placed via CAT scan guidance on July 14. It remained in place until August 05 at which time it was infected and the drain was removed. The patient states that at this time the seroma seems to have resolved although she has some firmness at the incision site. Additional seroma has not formed. The patient is on anastrozole at this time. The patient did have some decreased mobility of her left upper extremity and was treated with physical therapy. This has improved. The patient has not developed any lymphedema or swelling in her arm. The patient now is doing well. She is not in any pain. She is concerned about the scar tissue on the left side. Objective - Vital Signs Vital signs: Vital Signs Temp 96.3 F L 10/16/18 09:25 Pulse 92 10/16/18 09:25 Resp 18 10/16/18 09:25 BP 168/72 10/16/18 09:25 Pulse Ox 97 10/16/18 09:25 Intake & Output 10/15/18 10/16/18 10/16/18 18:59 06:59 18:59 Weight 63.503 kg - Constitutional General appearance: Present: average body habitus - EENT Eyes: Present: EOMI ENT: Present: hearing grossly normal - Neck Neck: Present: normal ROM - Respiratory Respiratory: bilateral: CTA - Cardiovascular Rhythm: regular Heart sounds: normal: S1, S2 - Gastrointestinal General gastrointestinal: Present: soft - Musculoskeletal Musculoskeletal: Present: gait normal - Psychiatric Psychiatric: Present: A&O x's 3, appropriate affect, intact judgment & insight - Additional findings Additional findings: breast exam: right breast: Multiple positional exam no dominant masses or nodules of concern Right axilla: No adenopathy of concern Left chest wall: Patient has some scarring related to prior mastectomy and seroma site there is no evidence of any recurrent cancer, no seroma at this time Left axilla: No adenopathy of concern Assessment and Plan Assessment: Impression: 1. [id number]+Her2-Grade2 left breast cancer 2. no evidence of recurrent cancer 3. scarring at mastectomy site 4. resolved seroma Plan: 1. Patient will continue her physical therapy at home 2. Follow with Dr. Germain 3. Follow here in 4 months 4. Patient to be fitted for a breast prosthesis Cc: Dr. Bautista
== END | disposition home or self-care (01) ==
LOC: WWCWWP 08:57
PROVIDERS: ATTEND Surgery
DX: Z53.9 Procedure and treatment not carried out, unspecified reason (principal)

== ENCOUNTER → 2018-12-03 | Outpatient (CLI) | payer MEDICARE, BC ==
--- NOTE | 2018-12-03 11:00 | MM ---
Reason for exam: additional evaluation requested from prior study. Last mammogram was performed 8 months ago. History: Patient is postmenopausal, has history of bilateral breast cancer at age 82, and has history of other cancer at age 67. Mastectomy of the left breast, May 19, 2018. Malignant MG pre op needle loc LT of the left breast, May 05, 2018. Lumpectomy of the left breast, May 05, 2018. Malignant US biopsy breast VAD LT of the left breast, April 08, 2018. Benign excisional biopsy of the left breast, 1987. Took hormonal contraceptives for 2 years beginning at age 29. Taking antineoplastic beginning at age 3. Physical Findings: Nurse did not find any significant physical abnormalities on exam. MG 3D Diag Mammo W/Cad RT CC and MLO view(s) were taken of the right breast. Prior study comparison: April 08, 2018, left breast MG diagnostic mammo LT wo CAD. March 30, 2018, left breast MG 3d diag mammo w/cad LT. The breast tissue is heterogeneously dense. This may lower the sensitivity of mammography. Benign appearing calcifictions in the right breast. No suspicious abnormality. Stable upper outer quadrant middle depth focal asymmetry is unchanged. These results were verbally communicated with the patient and result sheet given to the patient on 12/03/18. ASSESSMENT: Benign, BI-RAD 2 RECOMMENDATION: Follow-up diagnostic mammogram of the right breast in 1 year.
== END | disposition home or self-care (01) ==
LOC: RADMAMWWP 09:58
PROVIDERS: ATTEND Internal Medicine Hematology & Oncology
DX: Z08 Encounter for follow-up examination after completed treatment for malignant neoplasm (principal); Z85.3 Personal history of malignant neoplasm of breast
CPT/HCPCS: 77065; G0279; 77061

== ENCOUNTER → 2019-01-29 | Outpatient (CLI) | payer MEDICARE, BC ==
[2019-01-29 10:14] VITALS: BP 137/73; PULSE 83; RESP 18; TEMP 97.6; BMI 24.0
--- NOTE | 2019-01-29 10:32 | P.GSHP ---
History of Present Illness H&P Date: 01/29/19 Chief Complaint: stage 1a left breast cancer Dorene is an 83-year-old white female who is status post left breast mastectomy in April 2018. This was for a stage IA breast cancer. Postprocedure she developed a seroma which required multiple aspirations as well as a CT-guided insertion of a drain which was in place for approximately 3 weeks. The seroma has resolved. She did receive 4 weeks of physical therapy 3 times a week to improve the mobility of the left arm. At this time she has no pain. She has no evidence of recurrence that she is concerned about. She has good mobility of the arm. She is presently taking anastrozole under the direction of Dr. Zambrano. She did not have any radiation therapy or chemotherapy. Her last right breast mammogram was on 6618. This was benign BIRADS 2 and recommendation to have repeat mammogram in 1 year. The patient has no lumps or masses in her right breast. Her only complaint is that the left breast prostheses is somewhat uncomfortable and hot. Family history: neice: Breast cancer patient: breast cancer, squamous and basal cell cancer Hormonal history: Menarche: 11 , first at 26, breast fed: no Menopause:58 BCP: 2 years hormones: none, presently taking anastrozole Surgical history: 1. Left lumpectomy followed by left mastectomy 2. cataract surgery 3. tonsil 4. skin cancer on face Medical history: 1. Negative Social history: Smoking: Negative Alcohol: Negative Drugs: Negative HEENT: Glasses: Hearing aids Lungs: Negative Cardiovascular: Negative GI: Negative : Negative Musculoskeletal: Negative Skin: skin cancer - Constitutional Constitutional: Reports sweats - EENT Eyes: denies blurred vision, denies pain Ears: bilateral: decreased hearing Ears, nose, mouth and throat: Denies headache, Denies sore throat - Breasts Breasts: bilateral: as per HPI, absent: change in shape, gynecomastia, masses, nipple discharge, pain, skin changes, swelling - Cardiovascular Cardiovascular: Denies chest pain, Denies shortness of breath - Respiratory Respiratory: Denies cough, Denies 7 - Gastrointestinal Comment: Occasional reflux - Genitourinary (Female) Genitourinary: Denies dysuria, Denies hematuria - Menstruation Menstruation: Reports post hysterectomy - Musculoskeletal Musculoskeletal: Denies myalgias - Integumentary Comment: skin cancer in past - Neurological Neurological: Denies numbness, Denies weakness - Psychiatric Psychiatric: Denies anxiety, Denies depression - Endocrine Comment: hypothyroid Endocrine: Denies fatigue, Denies weight change - Hematologic/Lymphatic Comment: baby aspirin - Allergic/Immunologic Allergic/Immunologic: Reports as per HPI Past Medical History Past Medical History: Cancer, GERD/Reflux, Osteoarthritis (OA), Thyroid Disorder Additional Past Medical History / Comment(s): skin cancer, SOB with activity, borderline hypogylcemia- watches diet., Left Breast Cancer, states very sensitive to medications. History of Any Multi-Drug Resistant Organisms: None Reported Past Surgical History: Breast Surgery, Tonsillectomy Additional Past Surgical History / Comment(s): Breast bx L side x2., Left Breast Lumpectomy (05/05/18). left mastectomy Past Anesthesia/Blood Transfusion Reactions: Previous Problems w/ Anesthesia Additional Past Anesthesia/Blood Transfusion Reaction / Comment(s): States the lowest dose possible - very hard to awake. Past Psychological History: No Psychological Hx Reported Smoking Status: Never smoker Past Alcohol Use History: Rare Past Drug Use History: None Reported - Past Family History Father Family Medical History: Congestive Heart Failure (CHF) Mother Family Medical History: Congestive Heart Failure (CHF), Dementia, Hyperlipidemia Medications and Allergies Home Medications Medication Instructions Recorded Confirmed Type Ascorbic Acid [Vitamin C] 500 mg PO DAILY 04/01/18 10/16/18 History Aspirin [Adult Low Dose Aspirin EC] 81 mg PO DAILY 04/01/18 10/16/18 History Atorvastatin [Lipitor] 10 mg PO W/SUPPER 04/01/18 10/16/18 History Calcium/Magnesium/Zinc 1 each PO DAILY 04/01/18 10/16/18 History [Aodsphh-Fdwovxscv-Vflo Tablet] Levothyroxine Sodium [Synthroid] 25 mcg PO DAILY 04/01/18 10/16/18 History Vitamin E (Dl,Tocopheryl Acet) 400 unit PO DAILY 04/01/18 10/16/18 History [Vitamin E] Anastrozole [Arimidex] 1 mg PO DAILY 06/12/18 10/16/18 History Allergies Allergy/AdvReac Type Severity Reaction Status Date / Time adhesive Allergy Rash/Hives Verified 10/16/18 09:24 codeine Allergy Rash/Hives Verified 10/16/18 09:24 monosodium glutamate [MSG] AdvReac Nausea & Verified 10/16/18 09:24 Vomiting & Diarrhea Elastic products Allergy Rash/Hives Uncoded 10/16/18 09:24 Surgical - Exam BMI 24 - General well developed, well nourished, no distress - Eyes normal ocular movement - ENT no hearing loss, no congestion - Neck no masses, trachea midline - Respiratory normal respiratory effort, clear to auscultation - Cardiovascular Rhythm: regular Heart Sounds: normal: S1, S2 - Abdomen Abdomen: soft, non tender, no guarding, no rigid, no rebound - Integumentary normal turgor - Neurologic no disoriented, no combative - Musculoskeletal normal gait - Psychiatric oriented to time, oriented to person, oriented to place, speech is normal, memory intact Breast examination: Right breast: Multi-positional exam dense tissue but no dominant masses or notches of concern, fibrocystic changes Right axilla: No adenopathy of concern Left chest wall: Incision clean and dry well-healed no evidence of recurrent cancer Left axilla: No adenopathy of concern Results Right breast mammogram results reviewed Assessment and Plan Assessment: Impression: 1. Stage I a left breast cancer status post mastectomy no evidence of recurrence 2. Right breast dense breast tissue with fibrocystic changes 3. Family history of cancer 4. Personal history of skin cancer 5. Bilateral hearing aids, worse glasses 6. Patient on anastrozole Momin: 1. Patient is going to try a new left breast prosthesis 2. Continue anastrozole 3. Follow-up. 6 months for repeat examination 4. Repeat right breast mammogram in 1 year cc: Dr. Cardozo
== END | disposition home or self-care (01) ==
LOC: WWCWWP 09:37
PROVIDERS: ATTEND Surgery
DX: Z53.9 Procedure and treatment not carried out, unspecified reason (principal)

== ENCOUNTER → 2019-12-10 | Outpatient (CLI) | payer MEDICARE, BC ==
--- NOTE | 2019-12-14 10:26 | MM ---
Reason for exam: additional evaluation requested from prior study. Last mammogram was performed 1 year ago. History: Patient is postmenopausal, has history of bilateral breast cancer at age 82, and has history of other cancer at age 67. Mastectomy of the left breast, May 19, 2018. Malignant MG pre op needle loc LT of the left breast, May 05, 2018. Lumpectomy of the left breast, May 05, 2018. Malignant US biopsy breast VAD LT of the left breast, April 08, 2018. Benign excisional biopsy of the left breast, 1987. Took hormonal contraceptives for 2 years beginning at age 29. Taking antineoplastic for 2 years beginning at age 82. Physical Findings: Nurse did not find any significant physical abnormalities on exam. MG 3D Diag Mammo W/Cad RT CC and MLO view(s) were taken of the right breast. Prior study comparison: December 03, 2018, right breast MG 3d diag mammo w/cad RT. April 08, 2018, left breast MG diagnostic mammo LT wo CAD. There are scattered fibroglandular densities. Benign oil cyst and secretory calcifications redemonstrated. Focal asymmetry 11 o'clock is unchanged. No significant new findings when compared with previous films. These results were verbally communicated with the patient and result sheet given to the patient on 12/10/19. ASSESSMENT: Benign, BI-RAD 2 RECOMMENDATION: Follow-up diagnostic mammogram of the right breast in 1 year.
== END | disposition home or self-care (01) ==
LOC: RADMAMWWP 10:10
PROVIDERS: ATTEND Surgery
DX: Z08 Encounter for follow-up examination after completed treatment for malignant neoplasm (principal); Z85.3 Personal history of malignant neoplasm of breast
CPT/HCPCS: 77065; G0279; 77061

== ENCOUNTER → 2019-12-17 | Outpatient (CLI) | payer MEDICARE, BC ==
--- NOTE | 2019-12-17 14:22 | P.PN ---
Subjective Progress Note Date: 12/17/19 Principal diagnosis: stage IA left breast cancer/ April 2018 Jasmine is an 83-year-old white female who is status post left breast mastectomy in April 2018. This was for a stage IA breast cancer. Postprocedure she developed a seroma which required multiple aspirations as well as a CT-guided insertion of a drain which was in place for approximately 3 weeks. The seroma has resolved. She did receive 4 weeks of physical therapy 3 times a week to improve the mobility of the left arm. At this time she has no pain. She has no evidence of recurrence that she is concerned about. She has good mobility of the arm. She is presently taking anastrozole under the direc tion of Dr. Zambrano. She did not have any radiation therapy or chemotherapy. Her last right breast mammogram was on , this was benign BIRADS 2 and recommendation to have repeat mammogram in 1 year. The patient has no lumps or masses in her right breast. Her only complaint is that the left breast prostheses is somewhat uncomfortable and hot, she is using a fiberfill prosthesis and states it is more comfortable. Family history: neice: Breast cancer patient: breast cancer, squamous and basal cell cancer Hormonal history: Menarche: 11 , first at 26, breast fed: no Menopause:58 BCP: 2 years hormones: none, presently taking anastrozole Surgical history: 1. Left lumpectomy followed by left mastectomy 2. cataract surgery 3. tonsil 4. skin cancer on face Medical history: 1. Negative Social history: Smoking: Negative Alcohol: Negative Drugs: Negative HEENT: Glasses, Hearing aids Lungs: Negative Cardiovascular: Negative GI: Negative : Negative Musculoskeletal: Negative Skin: skin cancer - Constitutional Constitutional: Reports sweats occasional - EENT Eyes: denies blurred vision, denies pain Ears: bilateral: decreased hearing Ears, nose, mouth and throat: Denies headache, Denies sore throat - Breasts Breasts: bilateral: as per HPI, absent: change in shape, gynecomastia, masses, nipple discharge, pain, skin changes, swelling - Cardiovascular Cardiovascular: Denies chest pain, Denies shortness of breath - Respiratory Respiratory: Denies cough - Gastrointestinal Comment: Occasional reflux - Genitourinary (Female) Genitourinary: Denies dysuria, Denies hematuria - Menstruation Menstruation: Reports post hysterectomy - Musculoskeletal Musculoskeletal: Denies myalgias - Integumentary Comment: skin cancer in past - Neurological Neurological: Denies numbness, Denies weakness - Psychiatric Psychiatric: Denies anxiety, Denies depression - Endocrine Comment: hypothyroid Endocrine: Denies fatigue, Denies weight change - Hematologic/Lymphatic Comment: baby aspirin Objective - Vital Signs Vital signs: Intake & Output 12/16/19 12/17/19 12/17/19 18:59 06:59 18:59 Weight 63.503 kg - Exam BMI 24 - Constitutional General appearance: Present: average body habitus - EENT Eyes: Present: EOMI ENT: Present: hard of hearing - Neck Neck: Present: normal ROM - Respiratory Respiratory: bilateral: CTA - Cardiovascular Rhythm: regular Heart sounds: normal: S1, S2 - Gastrointestinal General gastrointestinal: Present: normal bowel sounds, soft - Integumentary Integumentary: Present: normal turgor - Musculoskeletal Musculoskeletal: Present: gait normal - Psychiatric Psychiatric: Present: A&O x's 3, appropriate affect, intact judgment & insight - Additional findings Additional findings: breast exam: BRA: 40 A inspection: grade 3 ptosis palpation: right breast: Superficial exam fibrocystic changes, no dominant masses or nodules of concern Right axilla: No adenopathy of concern Left chest wall: Well-healed scar no evidence of recurrent cancer Left axilla: No adenopathy of concern Assessment and Plan Assessment: Impression: 1. stage IA left breast cancer/ no evidence of recurrent cancer 2. Fibrocystic breast changes right breast Plan: 1. Position exam in 6 months for surveillance 2. Right breast mammogram in 1 year 3. Continue anastrozole/ follow with DR. Zambrano CC: Dr. Martinez encounter 20 minutes, > 50% of time in planning and counselling
== END | disposition home or self-care (01) ==
LOC: WWCWWP 13:50
PROVIDERS: ATTEND Surgery
DX: Z53.9 Procedure and treatment not carried out, unspecified reason (principal)

== ENCOUNTER → 2020-01-10 | Outpatient (CLI) | payer MEDICARE, BC ==
--- NOTE | 2020-01-10 13:04 | BD ---
EXAMINATION TYPE: Axial Bone Density DATE OF EXAM: 01/10/2020 COMPARISON: NONE CLINICAL HISTORY: Height: 5 FT 2 3/4 IN Weight: 137 FRAX RISK QUESTIONS: Alcohol (3 or more units per day): NO Family History (Parent hip fracture): YES Glucocorticoids (More than 3mos): NO (Ex: prednisone, prednisolone, methylprednisolone, dexamethasone, and hydrocortisone). History of Fracture in Adulthood: YES Secondary Osteoporosis: 1. Type 1 Diabetes: NO 2. Hyperthyroidism: NO 3. Menopause before 45: NO 4. Malnutrition: NO 5. Chronic liver disease: NO Rheumatoid Arthritis: NO Current Tobacco Use: NO RISK FACTORS HISTORY OF: YESActive: Postmenopausal woman: LATE 50'S Lost more than 2 inches in height since high school: YES MEDICATIONS: Thyroid Medications: YES Which medication: LEVOTHYROXINE How Lon-8 YEARS Additional Medications: ESTROGEN MIKE,LEVOTHYROXINE, ATORVASTATIN,VIT ,LOW DOSE ASPIRIN, CALCIUM Additional History: BREAST CANCER NO TREATMENT EXAM MEASUREMENTS: Bone mineral densitometry was performed using the [employer] System. Bone mineral density as measured about the Lumbar spine is: ----- L1-L4(G/cm2): 1.042 T Score Values are as follows: ----- L2: -2.9 ----- L3: -1.2 ----- L4: 0.5 ----- L1-L4: -1.1 Bone mineral density has: DECREASED -0.7 % since study of: 2018 Bone mineral density about the R hip (g/cm2): 0.909 Bone mineral density about the L hip (g/cm2): 0.824 T Score values are as follows: -----R Neck: -0.9 -----L Neck: -1.5 -----R Total: -1.0 -----L Total: -1.0 Bone mineral density has: DECREASED -7.0 % since study of: 2018 Bone mineral density has: % since study of: IMPRESSION: Osteopenia lumbar spine. NOTE: T-SCORE=SD OF THE YOUNG ADULT MEAN.
== END | disposition home or self-care (01) ==
LOC: RADBDWWP 12:32
PROVIDERS: ATTEND Internal Medicine Hematology & Oncology
DX: M85.88 Other specified disorders of bone density and structure, other site (principal); N95.1 Menopausal and female climacteric states; Z79.899 Other long term (current) drug therapy
CPT/HCPCS: 77080

== ENCOUNTER → 2020-02-09 | Outpatient (CLI) | payer MEDICARE, BC ==
--- NOTE | 2020-02-09 11:38 | US ---
EXAMINATION TYPE: US kidneys/renal and bladder DATE OF EXAM: 02/09/2020 COMPARISON: NONE CLINICAL HISTORY: 84-year-old female N18.9 chronic kidney disease. CKD, frequent urination TECHNIQUE: Multiple sonographic images of the kidneys and bladder are obtained. FINDINGS: EXAM MEASUREMENTS: Right Kidney: 9.1 x 3.5 x 4.5 cm Left Kidney: 9.9 x 5.0 x 4.0 cm No hydronephrosis on either side. On the left, there is a 2.1 cm lateral cortical cyst. There is a nodular hypoechoic area at the mid p ole with some internal vascularity measuring 2.3 cm also noted. Bladder: wnl Bilateral Jets seen: yes IMPRESSION: 1. No hydronephrosis. 2. A 2.3 cm dromedary hump versus left midpole renal mass. Renal mass protocol CT or MRI recommended to further evaluate.
== END | disposition home or self-care (01) ==
LOC: RADUSWWP 08:54
PROVIDERS: ATTEND Family Medicine
DX: N18.9 Chronic kidney disease, unspecified (principal)
CPT/HCPCS: 76770

== ENCOUNTER → 2020-02-16 | Outpatient (CLI) | payer MEDICARE, BC ==
--- NOTE | 2020-02-16 10:37 | CT ---
EXAMINATION TYPE: CT abdomen wo/w con DATE OF EXAM: 02/16/2020 HISTORY: Renal mass, abnormal ultrasound. History of left-sided breast cancer. CT DLP: 1038mGycm Automated Exposure Control for Dose Reduction was Utilized. CONTRAST: CT scan of the abdomen is performed with oral and without and with IV Contrast, patient injected with 100 ml mL of Isovue 300. COMPARISON: Renal ultrasound February 09, 2020 FINDINGS: LUNG BASES: No significant abnormality is appreciated. LIVER/GB: No significant abnormality is appreciated. PANCREAS: No significant abnormality is seen. SPLEEN: There is incidental 9 mm splenule inferior to spleen. ADRENALS: No significant abnormality is seen. KIDNEYS: Noncontrast images show no renal calculi bilaterally. Postcontrast images show symmetric cor tical medullary uptake and excretion without hydronephrosis seen bilaterally. There is confirmation o f simple appearing thin-walled cyst partially exophytic posteriorly from the mid pole level left kidn ey. This measures 2.3 x 1.9 cm axial image 31 series 11. The more central area of concern medially le ft kidney shows no worrisome mass. No additional solid or cystic masses identified in either kidney. BOWEL: Small size hiatal hernia is present. Oral contrast does not reach level of the colon. There is no suspicious small or large bowel dilatation. LYMPH NODES: No greater than 1cm abdominal lymph nodes are appreciated. OSSEOUS STRUCTURES: Slight grade 1 anterolisthesis L4 on L5 with mild disc space narrowing. Some prom inent right lateral spurring in the lower thoracic spine. Facet arthropathy lower lumbar spine. OTHER: Small fat-containing umbilical hernia. IMPRESSION: No suspicious solid or cystic renal mass with particular attention to the left kidney at the area of ultrasound concern.
== END | disposition home or self-care (01) ==
LOC: RADCTMAIN 07:59
PROVIDERS: ATTEND Family Medicine
DX: N28.89 Other specified disorders of kidney and ureter (principal)
CPT/HCPCS: 82565; 84520; 74170; 36415; Q9967

== ENCOUNTER → 2020-06-16 | Outpatient (CLI) | payer MEDICARE, BC ==
--- NOTE | 2020-06-16 15:06 | P.PN ---
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 This was for a stage IA breast cancer. Postprocedure she developed a seroma which required multiple aspirations as well as a CT-guided insertion of a drain which was in place for approximately 3 weeks. The seroma has resolved. She did receive 4 weeks of physical therapy 3 times a week to improve the mobility of the left arm. At this time she has no pain. She has no evidence of recurrence that she is concerned about. She has good mobility of the arm. She is presently taking anastrozole under the direction of Dr. Zambrano. She did not have any radiation therapy or chemotherapy. Her last right breast mammogram was on , this was benign BIRADS 2 and recommendation to have repeat mammogram in 1 year. The patient has no lumps or masses in her right breast. Her only complaint is that the left breast prostheses is somewhat uncomfortable and hot, she is using a fiberfill prosthesis and states it is more comfortable. She saw Dr. Dalton on Friday and was started on alendronate which is supposed to start next week. This is for osteopena. She is concerned about the side effects, she doses have acid reflux and is on aspirin. She is not complaining of any lumps masses or nodules in her right breast or her left chest wall. Family history: neice: Breast cancer patient: breast cancer, squamous and basal cell cancer Hormonal history: Menarche: 11 , first at 26, breast fed: no Menopause:58 BCP: 2 years hormones: none, presently taking anastrozole Surgical history: 1. Left lumpectomy followed by left mastectomy 2. cataract surgery 3. tonsil 4. skin cancer on face Medical history: 1. Negative 2. osterpeina 3. HTN Social history: Smoking: Negative Alcohol: Negative Drugs: Negative HEENT: Glasses, Hearing aids Lungs: Negative Cardiovascular: HTN GI: Negative : Negative Musculoskeletal: Negative Skin: skin cancer - Constitutional Constitutional: Reports sweats occasional - EENT Eyes: denies blurred vision, denies pain Ears: bilateral: decreased hearing Ears, nose, mouth and throat: Denies headache, Denies sore throat - Breasts Breasts: bilateral: as per HPI, absent: no nipple discharge, pain, skin changes, swelling - Cardiovascular Cardiovascular: Denies chest pain, Denies shortness of breath - Respiratory Respiratory: Denies cough - Gastrointestinal Comment: Occasional reflux - Genitourinary (Female) Genitourinary: Denies dysuria, Denies hematuria - Menstruation Menstruation: Reports post hysterectomy - Musculoskeletal Musculoskeletal: Denies myalgias - Integumentary Comment: skin cancer in past - Neurological Neurological: Denies numbness, Denies weakness - Psychiatric Psychiatric: Denies anxiety, Denies depression - Endocrine Comment: hypothyroid Endocrine: Denies fatigue, Denies weight change - Hematologic/Lymphatic Comment: baby aspirin Objective - Vital Signs Vital signs: Vital Signs Temp 98.0 F 06/16/20 14:11 Pulse 96 06/16/20 14:11 Resp 18 06/16/20 14:11 BP 134/76 06/16/20 14:11 Pulse Ox 97 06/16/20 14:11 Intake & Output 06/15/20 06/16/20 06/16/20 18:59 06:59 18:59 Weight 63.503 kg - Exam BMI 24 - Constitutional General appearance: Present: average body habitus - EENT Eyes: Present: EOMI ENT: Present: hearing grossly normal - Neck Neck: Present: normal ROM - Respiratory Respiratory: bilateral: CTA - Cardiovascular Rhythm: regular Heart sounds: normal: S1, S2 - Gastrointestinal General gastrointestinal: Present: normal bowel sounds, soft - Integumentary Integumentary: Present: normal turgor - Musculoskeletal Musculoskeletal: Present: gait normal - Psychiatric Psychiatric: Present: A&O x's 3, appropriate affect - Additional findings Additional findings: breast exam: BRA: 40 A inspection: left chest wall no evidence of recurrence palpation: right breast: Multi-positional exam, fibrocystic changes, no dominant masses or nodules of concern Right axilla: No adenopathy of concern Left chest wall: No evidence of recurrent cancer status post mastectomy Left axilla: No adenopathy of concern Assessment and Plan Assessment: Impression: 1. Status post left mastectomy stage IA left breast cancer no evidence of recurrence 2. Osteopenia patient has questions regarding starting aledronate 3. She will continue Arimidex Plan: 1. Patient also right breast mammogram in November 2020 appointment at that time 2. Patient will discuss with primary care doctor and/or Dr. Germain before starting the aledronate CC: DR. Martinez encounter 20 minutes, > 50% of time with planning and counselling
== END | disposition home or self-care (01) ==
DX: Z53.9 Procedure and treatment not carried out, unspecified reason (principal)

== ENCOUNTER → 2020-12-13 | Outpatient (CLI) | payer MEDICARE, BC ==
--- NOTE | 2020-12-14 14:24 | MM ---
Reason for exam: additional evaluation requested from prior study. Last mammogram was performed 1 year ago. History: Patient is postmenopausal, has history of bilateral breast cancer at age 82, and has history of other cancer at age 67. Mastectomy of the left breast, May 19, 2018. Malignant MG pre op needle loc LT of the left breast, May 05, 2018. Lumpectomy of the left breast, May 05, 2018. Malignant US biopsy breast VAD LT of the left breast, April 08, 2018. Benign excisional biopsy of the left breast, 1987. Took hormonal contraceptives for 2 years beginning at age 29. Taking antineoplastic for 3 years beginning at age 82. Physical Findings: Nurse did not find any significant physical abnormalities on exam. MG 3D Diag Mammo W/Cad RT CC and MLO view(s) were taken of the right breast. Prior study comparison: December 10, 2019, right breast MG 3d diag mammo w/cad RT. December 03, 2018, right breast MG 3d diag mammo w/cad RT. There are scattered fibroglandular densities. Left mastectomy. These results were verbally communicated with the patient and result sheet given to the patient on 12/13/20. ASSESSMENT: Benign, BI-RAD 2 RECOMMENDATION: Routine screening mammogram of the right breast in 1 year.
== END | disposition home or self-care (01) ==
LOC: RADMAMWWP 10:06
PROVIDERS: ATTEND Surgery
DX: N64.89 Other specified disorders of breast (principal); Z78.0 Asymptomatic menopausal state; Z85.3 Personal history of malignant neoplasm of breast; Z90.12 Acquired absence of left breast and nipple
CPT/HCPCS: 77065; G0279; 77061

== ENCOUNTER → 2020-12-21 | Outpatient (CLI) | payer MEDICARE, BC ==
[2020-12-21 12:44] VITALS: BP 161/90; PULSE 75; RESP 18; TEMP 98.5
--- NOTE | 2020-12-21 12:51 | P.PN ---
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 This was for a stage IA breast cancer. Postprocedure she developed a seroma which required multiple aspirations as well as a CT-guided insertion of a drain which was in place for approximately 3 weeks. The seroma has resolved. She did receive 4 weeks of physical therapy 3 times a week to improve the mobility of the left arm. At this time she has no pain. She has no evidence of recurrence that she is concerned about. She has good mobility of the arm. She is presently taking anastrozole under the direction of Dr. Zambrano. She did not have any radiation therapy or chemotherapy. Her last right breast mammogram was on , this was benign BIRADS 2 and recommendation to have repeat mammogram in 1 year. The patient has no lumps or masses in her right breast. Her only complaint is that the left breast prostheses was somewhat uncomfortable and hot, she is using a fiberfill prosthesis and states it is more comfortable. She saw Dr. Dalton and was started on alendronate. This is for osteopena. She was concerned about the side effects, she doses have acid reflux and is on aspirin. She is not complaining of any lumps masses or nodules in her right breast or her left chest wall. Family history: neice: Breast cancer patient: breast cancer, squamous and basal cell cancer Hormonal history: Menarche: 11 , first at 26, breast fed: no Menopause:58 BCP: 2 years hormones: none, presently taking anastrozole Surgical history: 1. Left lumpectomy followed by left mastectomy 2. cataract surgery 3. tonsil 4. skin cancer on face Medical history: 1. osterpeina 2. HTN Social history: Smoking: Negative Alcohol: Negative Drugs: Negative HEENT: Glasses, Hearing aids Lungs: Negative Cardiovascular: HTN GI: Negative : Negative Musculoskeletal: Negative Skin: skin cancer - Constitutional Constitutional: Reports sweats occasional - EENT Eyes: denies blurred vision, denies pain Ears: bilateral: decreased hearing Ears, nose, mouth and throat: Denies headache, Denies sore throat - Breasts Breasts: bilateral: as per HPI, absent: no nipple discharge, pain, skin changes, swelling - Cardiovascular Cardiovascular: Denies chest pain, Denies shortness of breath - Respiratory Respiratory: Denies cough - Gastrointestinal Comment: Occasional reflux - Genitourinary (Female) Genitourinary: Denies dysuria, Denies hematuria - Menstruation Menstruation: Reports post hysterectomy - Musculoskeletal Musculoskeletal: Denies myalgias - Integumentary Comment: skin cancer in past - Neurological Neurological: Denies numbness, Denies weakness - Psychiatric Psychiatric: Denies anxiety, Denies depression - Endocrine Comment: hypothyroid Endocrine: Denies fatigue, Denies weight change - Hematologic/Lymphatic Comment: baby aspirin Objective - Constitutional General appearance: Present: average body habitus - EENT Eyes: Present: EOMI ENT: Present: hearing grossly normal - Neck Neck: Present: normal ROM - Respiratory Respiratory: bilateral: CTA - Cardiovascular Rhythm: regular Heart sounds: normal: S1, S2 - Gastrointestinal General gastrointestinal: Present: soft - Integumentary Integumentary: Present: normal turgor - Musculoskeletal Musculoskeletal: Present: gait normal - Psychiatric Psychiatric: Present: A&O x's 3, appropriate affect, intact judgment & insight - Additional findings Additional findings: Breast Exam: Bra: 40A inspection: grade 2 ptosis, left chest wall mastectomy site clean and dry palpation: Right breast: Multi-positional exam fibrocystic changes, no dominant masses or nodules of concern Right axilla: No adenopathy of concern Left chest wall: Incision clean and dry no evidence of recurrent cancer Left axilla: No adenopathy of concern Assessment and Plan Assessment: Impression: 1. Osteopenia 2. Hypertension 3. No evidence of recurrent left breast cancer 4. Patient presently on alendronate, and anestrazole Plan: 1. Right breast mammogram in 1 year 2. Follow-up examination in 6 months 3. Continue anastrozole and L alendronate/continue to follow with medical oncology Cc: Dr. Martinez
== END ==
LOC: WWCWWP 12:32
PROVIDERS: ATTEND Surgery
DX: Z08 Encounter for follow-up examination after completed treatment for malignant neoplasm (principal); I10 Essential (primary) hypertension; M85.80 Other specified disorders of bone density and structure, unspecified site; Z85.3 Personal history of malignant neoplasm of breast; Z80.3 Family history of malignant neoplasm of breast; Z79.811 Long term (current) use of aromatase inhibitors; Z90.12 Acquired absence of left breast and nipple; Z79.899 Other long term (current) drug therapy; Z88.5 Allergy status to narcotic agent; Z91.048 Other nonmedicinal substance allergy status; Z91.018 Allergy to other foods

== ENCOUNTER → 2022-01-15 | Outpatient (CLI) | payer MEDICARE ==
--- NOTE | 2022-01-15 11:32 | MM ---
Reason for Exam: Hx of breast cancer, mastectomy. Last mammogram was performed 1 year(s) and 1 month(s) ago. Patient History: Menarche at age 10. First Full-Term at age 28. Postmenopausal. Breast cancer, left, age 82. Hormonal Contraceptives for 2 years from age 29 until age 31. 1987, Benign Excisional Biopsy on the left side. 05/19/2018, Mastectomy on the Left side. 05/05/2018, Lumpectomy on the Left side. 05/05/2018, Malignant Core Biopsy on the left side. 04/08/2018, Malignant Core Biopsy on the left side. Prior Study Comparison: 12/03/2018 Right Diagnostic Mammogram, [facility]. 12/10/2019 Right Diagnostic Mammogram, [facility]. 12/13/2020 Right Diagnostic Mammogram, [facility]. Tissue Density: Right: The breast tissue is heterogeneously dense. This may lower the sensitivity of mammography. Findings: Analyzed By CAD. Benign-appearing calcifications are noted. Breast tissue densities are similar to prior exam. Suspicious grouped calcifications. Overall Assessment: Benign, BI-RAD 2 Management: Diagnostic Mammogram of the right breast in 1 year. A clinical breast exam by your physician is recommended on an annual basis and results should be correlated with mammographic findings. This exam should not preclude additional follow-up of suspicious palpable abnormalities. Results were given to the patient verbally at the time of exam. Electronically signed and approved by: Chadwick Byrd M.D. Radiologis
--- NOTE | 2022-01-15 11:35 | BD ---
EXAMINATION TYPE: Axial Bone Density DATE OF EXAM: 01/15/2022 COMPARISON: 11.10.2017 CLINICAL HISTORY: 86 years year old Female. ICD-10 CODE: Z78.0 POST MENOPAUSAL WITHOUT HRT Height: 62 Weight: 140 FRAX RISK QUESTIONS: Family History (Parent hip fracture): YES RISK FACTORS HISTORY OF: Family History of Osteoporosis: YES, MOTHER WITH HIP FX Postmenopausal woman: 58 YRS OLD Lost more than 2 inches in height since high school: YES Hyperparathyroidism: NO Adrenal Insufficiency: NO MEDICATIONS: Thyroid Medications: YES, SYNTHROID PRODUCT FOR OVER 10 YRS Additional Medications: ANASTROZOLE, ALENDRONATE, CA HX LT MASTECTOMY, BP MEDS, REFLUX MEDS, STATIN F OR CHOLESTEROL, VIT D AND CALCIUM Additional History: HX OF LT BREAST CANCER WITH MASTECTOMY, REFLUX PRN, CHOLESTEROL, EXAM MEASUREMENTS: Bone mineral densitometry was performed using the Noveporter System. Bone mineral density as measured about the Lumbar spine is: ----- L1-L4(G/cm2): 1.150 T Score Values are as follows: ----- L1: -0.6 ----- L2: -1.5 ----- L3: -0.3 ----- L4: 1.0 ----- L1-L4: -0.2 Bone mineral density has: Increased 9.0% SINCE 11.10.2017 Bone mineral density about the R hip (g/cm2): 0.939 Bone mineral density about the L hip (g/cm2): 0.898 T Score values are as follows: -----R Neck: 0.0 -----L Neck: -0.9 -----R Total: -0.5 -----L Total: -0.9 Bone mineral density has: Decreased -3.0% SINCE 11.10.2017 FRAX%s: The graph provided illustrates a 19.5%ce for a major osteoporotic fx and a 10.6%ce for the hi ps probability for fx in 10 years time. IMPRESSION: Normal (Values between +1 and -1 indicate normal bone mass). Consider repeating this study in 5 year s or sooner if there is some new clinical indication. NOTE: T-SCORE=SD OF THE YOUNG ADULT MEAN.
== END | disposition home or self-care (01) ==
LOC: RADMAMWWP 08:37
PROVIDERS: ATTEND Surgery
DX: R92.8 Other abnormal and inconclusive findings on diagnostic imaging of breast (principal); Z78.0 Asymptomatic menopausal state; Z85.3 Personal history of malignant neoplasm of breast
CPT/HCPCS: 77080; 77065; G0279; 77061

== ENCOUNTER → 2022-01-18 | Outpatient (CLI) | payer MEDICARE ==
[2022-01-18 09:42] VITALS: BP 145/87; PULSE 86; RESP 16; TEMP 98.4
--- NOTE | 2022-01-18 10:13 | P.PN ---
Subjective Progress Note Date: 01/18/22 Principal diagnosis: Stage IA left breast cancer stage IA left breast cancer/ April 2018 Jasmine is an 86-year-old white female who is status post left breast mastectomy in April 2018. This was for a stage IA breast cancer. Postprocedure she developed a seroma which required multiple aspirations as well as a CT-guided insertion of a drain which was in place for approximately 3 weeks. The seroma has resolved. She did receive 4 weeks of physical therapy 3 times a week to improve the mobility of the left arm. At this time she has no pain. She has no evidence of recurrence that she is concerned about. She has good mobility of the arm. She is presently taking anastrozole under the direction of Dr. Zambrano. She did not have any radiation therapy or chemotherapy. Her last right breast mammogram was on 01-15-22, this was benign BIRADS 2 and recommendation to have repeat mammogram in 1 year. The patient has no lumps or masses in her right breast. At this time the left breast prostheses she is using is a somewhat fiberfill prosthesis which is comfortable for her. She saw Dr. Dalton and was started on alendronate. This is for osteopena. She was concerned about the side effects, without side effects of concern. She is not complaining of any lumps masses or nodules in her right breast or her left chest wall. Family history: neice: Breast cancer patient: breast cancer, squamous and basal cell cancer Hormonal history: Menarche: 11 , first at 26, breast fed: no Menopause:58 BCP: 2 years hormones: none, presently taking anastrozole Surgical history: 1. Left lumpectomy followed by left mastectomy 2. cataract surgery 3. tonsil 4. skin cancer on face Medical history: 1. osterpeina 2. HTN Social history: Smoking: Negative Alcohol: Negative Drugs: Negative HEENT: Glasses, Hearing aids Lungs: Negative Cardiovascular: HTN GI: Negative : Negative Musculoskeletal: Negative Skin: skin cancer - Constitutional Constitutional: Reports sweats occasional - EENT Eyes: denies blurred vision, denies pain Ears: bilateral: decreased hearing Ears, nose, mouth and throat: Denies headache, Denies sore throat - Breasts Breasts: bilateral: as per HPI, absent: no nipple discharge, pain, skin changes, swelling - Cardiovascular Cardiovascular: Denies chest pain, Denies shortness of breath - Respiratory Respiratory: Denies cough - Gastrointestinal Comment: Occasional reflux - Genitourinary (Female) Genitourinary: Denies dysuria, Denies hematuria - Menstruation Menstruation: Reports post hysterectomy - Musculoskeletal Musculoskeletal: Denies myalgias - Integumentary Comment: skin cancer in past - Neurological Neurological: Denies numbness, Denies weakness - Psychiatric Psychiatric: Denies anxiety, Denies depression - Endocrine Comment: hypothyroid Endocrine: Denies fatigue, Denies weight change - Hematologic/Lymphatic Comment: baby aspirin Objective - Vital Signs Vital signs: Vital Signs Temp 98.4 F 01/18/22 09:39 Pulse 86 01/18/22 09:39 Resp 16 01/18/22 09:39 BP 145/87 01/18/22 09:39 Pulse Ox 95 01/18/22 09:39 FiO2 Intake & Output 01/17/22 01/18/22 01/18/22 18:59 06:59 18:59 Weight 63.503 kg - Exam BMI: 25.6 - Constitutional General appearance: Present: cooperative - EENT Eyes: Present: EOMI - Neck Neck: Present: normal ROM - Respiratory Respiratory: bilateral: CTA - Cardiovascular Heart sounds: normal: S1, S2 - Integumentary Integumentary: Present: normal turgor - Musculoskeletal Musculoskeletal: Present: gait normal - Psychiatric Psychiatric: Present: A&O x's 3, appropriate affect, intact judgment & insight - Additional findings Additional findings: Breast Exam: BRA: 40A inspection: Left chest wall incision clean and dry, right breast grade 2/3 ptosis Palpation: Right breast: Multiple positional exam fibrocystic changes no dominant masses or nodules of concern Right axilla: No adenopathy of concern Left chest wall: No evidence of any recurrent cancer Left axilla: No adenopathy of concern Assessment and Plan Assessment: Impression: Patient no evidence of recurrent stage IA left breast cancer Patient continues on anastrozole Patient doing well at this time with no complaints Plan: Follow-up examination in 6 months Right breast mammogram in 1 year with physician exam at that time Continue to follow with medical oncology and anastrozole Cc: Dr. Perdue
== END ==
LOC: WWCWWP 09:29
PROVIDERS: ATTEND Surgery
DX: Z08 Encounter for follow-up examination after completed treatment for malignant neoplasm (principal); Z85.3 Personal history of malignant neoplasm of breast; Z79.811 Long term (current) use of aromatase inhibitors; I10 Essential (primary) hypertension; Z87.39 Personal history of other diseases of the musculoskeletal system and connective tissue; Z88.5 Allergy status to narcotic agent; Z91.048 Other nonmedicinal substance allergy status; Z91.02 Food additives allergy status

== ENCOUNTER → 2022-07-19 | Outpatient (CLI) | payer MEDICARE ==
[2022-07-19 10:39] VITALS: BP 154/82; PULSE 86; RESP 16; TEMP 98
--- NOTE | 2022-07-19 10:54 | P.PN ---
Subjective Progress Note Date: 07/19/22 Principal diagnosis: Left breast stage IA invasive ductal carcinoma 2018 stage IA left breast cancer/ April 2018 Jasmine is an 87-year-old white female who is status post left breast mastectomy in April 2018. This was for a stage IA breast cancer. Postprocedure she developed a seroma which required multiple aspirations as well as a CT-guided insertion of a drain which was in place for approximately 3 weeks. The seroma has resolved. She did receive 4 weeks of physical therapy 3 times a week to improve the mobility of the left arm. At this time she has no pain. She has no evidence of recurrence that she is concerned about. She has good mobility of the arm. She is presently taking anastrozole under the direction of Dr. Zambrano. She did not have any radiation therapy or chemotherapy. Her last right breast mammogram was on 01-15-22, this was benign BIRADS 2 and recommendation to have repeat mammogram in 1 year. The patient has no lumps or masses in her right breast. At this time the left breast prostheses she is using is a somewhat fiberfill prosthesis which is comfortable for her. She saw Dr. Germain and was started on alendronate. This is for osteopena. She was concerned about the side effects, without side effects of concern. She is not complaining of any lumps masses or nodules in her right breast or her left chest wall. Note from Dr. Germain 06-03-22 reviewed Family history: neice: Breast cancer patient: breast cancer, squamous and basal cell cancer Hormonal history: Menarche: 11 , first at 26, breast fed: no Menopause:58 BCP: 2 years hormones: none, presently taking anastrozole Surgical history: 1. Left lumpectomy followed by left mastectomy 2. cataract surgery 3. tonsil 4. skin cancer on face Medical history: 1. osterpeina 2. HTN Social history: Smoking: Negative Alcohol: Negative Drugs: Negative HEENT: Glasses, Hearing aids Lungs: Negative Cardiovascular: HTN GI: Negative : Negative Musculoskeletal: Negative Skin: skin cancer - Constitutional Constitutional: Reports sweats occasional - EENT Eyes: denies blurred vision, denies pain Ears: bilateral: decreased hearing Ears, nose, mouth and throat: Denies headache, Denies sore throat - Breasts Breasts: bilateral: as per HPI, absent: no nipple discharge, pain, skin changes, swelling - Cardiovascular Cardiovascular: Denies chest pain, Denies shortness of breath - Respiratory Respiratory: Denies cough - Gastrointestinal Comment: Occasional reflux - Genitourinary (Female) Genitourinary: Denies dysuria, Denies hematuria - Menstruation Menstruation: Reports post hysterectomy - Musculoskeletal Musculoskeletal: Denies myalgias - Integumentary Comment: skin cancer in past - Neurological Neurological: Denies numbness, Denies weakness - Psychiatric Psychiatric: Denies anxiety, Denies depression - Endocrine Comment: hypothyroid Endocrine: Denies fatigue, Denies weight change - Hematologic/Lymphatic Comment: baby aspirin Objective - Vital Signs Vital signs: Vital Signs Temp 98.0 F 07/19/22 10:36 Pulse 86 07/19/22 10:36 Resp 16 07/19/22 10:36 BP 154/82 07/19/22 10:36 Pulse Ox 97 07/19/22 10:36 FiO2 Intake & Output 07/18/22 07/19/22 07/19/22 18:59 06:59 18:59 Weight 63.503 kg - Constitutional General appearance: Present: cooperative - EENT Eyes: Present: EOMI ENT: Present: hearing grossly normal - Neck Neck: Present: normal ROM - Respiratory Respiratory: bilateral: CTA - Cardiovascular Rhythm: regular Heart sounds: normal: S1, S2 - Gastrointestinal General gastrointestinal: Present: soft - Integumentary Integumentary: Present: normal turgor - Musculoskeletal Musculoskeletal: Present: gait normal - Psychiatric Psychiatric: Present: A&O x's 3, appropriate affect, intact judgment & insight - Additional findings Additional findings: Breast Exam: BRA: 40A inspection: Left chest wall incision clean and dry, right breast grade 2/3 ptosis Palpation: Right breast: Multiple positional exam fibrocystic changes no dominant masses or nodules of concern Right axilla: No adenopathy of concern Left chest wall: No evidence of any recurrent cancer Left axilla: No adenopathy of concern Assessment and Plan Assessment: Impression: Patient no evidence of recurrent stage IA left breast cancer Patient continues on anastrozole Patient doing well at this time with no complaints patient on aldenrate Plan: Follow-up examination in 6 months Right breast mammogram in December 2022 with physician exam at that time Continue to follow with medical oncology and anastrozole Cc: Lester
== END ==
LOC: WWCWWP 10:29
PROVIDERS: ATTEND Surgery
DX: Z85.3 Personal history of malignant neoplasm of breast (principal); I10 Essential (primary) hypertension; M85.80 Other specified disorders of bone density and structure, unspecified site; Z88.5 Allergy status to narcotic agent; Z91.048 Other nonmedicinal substance allergy status; Z91.018 Allergy to other foods; Z91.040 Latex allergy status

== ENCOUNTER 2023-02-12 11:33 | Emergency (ER) | payer MEDICARE ==
[2023-02-12 11:42] VITALS: RESP 18; TEMP 98.1
[2023-02-12] MEDS ORDERED: SODIUM CHLORIDE 0.9% 500 ML 500 ML IV ONE (11:42)
--- NOTE | 2023-02-12 11:48 | ED ---
General Adult HPI - General Chief complaint: Syncope Stated complaint: Fall,Syncope, No Thinners Time Seen by Provider: 02/12/23 11:38 Source: patient, EMS, RN notes reviewed, old records reviewed Mode of arrival: EMS Limitations: no limitations - History of Present Illness Initial comments: 87 yo female presented for evaluation after syncopal episode with head trauma. Patient had been standing at the window of her home, which she fell backwards she was totally unconscious. She had no preceding symptoms. No chest pain or palpitations per she complains of a mild headache at this point. No extremity injury. No vomiting or diarrhea. The patient was transported by paramedics but was reluctant and she states that she felt mostly fine. Friends and family had convinced her to present to the emergency department. - Related Data Home Medications Medication Instructions Recorded Confirmed Ascorbic Acid [Vitamin C] 500 mg PO DAILY 04/01/18 01/18/22 Aspirin [Adult Low Dose Aspirin EC] 81 mg PO DAILY 04/01/18 01/18/22 Atorvastatin [Lipitor] 10 mg PO W/SUPPER 04/01/18 01/18/22 Calcium/Magnesium/Zinc 1 each PO DAILY 04/01/18 01/18/22 [Piphkkp-Iqxugalhb-Spyv Tablet] Levothyroxine Sodium [Synthroid] 25 mcg PO DAILY 04/01/18 01/18/22 Vitamin E (Dl,Tocopheryl Acet) 400 unit PO DAILY 04/01/18 01/18/22 [Vitamin E] Anastrozole [Arimidex] 1 mg PO DAILY 06/12/18 01/18/22 Cholecalciferol [Vitamin D3 (25 1,000 unit PO DAILY 06/16/20 01/18/22 Mcg = 1000 Iu)] Losartan [Cozaar] 50 mg PO DAILY 06/16/20 01/18/22 Alendronate Sodium [Fosamax] 35 mg PO WEEKLY 12/21/20 01/18/22 Metoprolol Succinate [Metoprolol 25 mg PO DAILY 01/18/22 01/18/22 Succinate ER] Allergies Allergy/AdvReac Type Severity Reaction Status Date / Time adhesive Allergy Rash/Hives Verified 02/12/23 11:42 codeine Allergy Rash/Hives Verified 02/12/23 11:42 monosodium glutamate [MSG] AdvReac Nausea & Verified 02/12/23 11:42 Vomiting & Diarrhea Elastic products Allergy Rash/Hives Uncoded 02/12/23 11:42 Review of Systems ROS Statement: Those systems with pertinent positive or pertinent negative responses have been documented in the HPI. ROS Other: All systems not noted in ROS Statement are negative. Past Medical History Past Medical History: Cancer, GERD/Reflux, Osteoarthritis (OA), Thyroid Disorder Additional Past Medical History / Comment(s): skin cancer, SOB with activity, borderline hypogylcemia- watches diet., Left Breast Cancer, states very sensitive to medications. History of Any Multi-Drug Resistant Organisms: None Reported Past Surgical History: Breast Surgery, Tonsillectomy Additional Past Surgical History / Comment(s): Breast bx L side x2., Left Breast Lumpectomy (05/05/18). left mastectomy Past Anesthesia/Blood Transfusion Reactions: Previous Problems w/ Anesthesia Additional Past Anesthesia/Blood Transfusion Reaction / Comment(s): States the lowest dose possible - very hard to awake. Past Psychological History: No Psychological Hx Reported Smoking Status: Never smoker Past Alcohol Use History: Rare Past Drug Use History: None Reported - Past Family History Father Family Medical History: Congestive Heart Failure (CHF) Mother Family Medical History: Congestive Heart Failure (CHF), Dementia, Hyperlipidemia General Exam Limitations: no limitations General appearance: alert, in no apparent distress Head exam: Present: atraumatic, normocephalic Eye exam: Present: normal appearance, PERRL ENT exam: Present: normal exam Neck exam: Present: normal inspection. Absent: tenderness, meningismus Respiratory exam: Present: normal lung sounds bilaterally. Absent: respiratory distress, wheezes Cardiovascular Exam: Present: regular rate, normal rhythm GI/Abdominal exam: Present: soft. Absent: distended, tenderness Extremities exam: Present: normal inspection, normal capillary refill. Absent: pedal edema Neurological exam: Present: alert, oriented X3, CN II-XII intact. Absent: motor sensory deficit Psychiatric exam: Present: normal affect, normal mood Skin exam: Present: warm, dry, intact Course Vital Signs 02/12/23 02/12/23 11:40 13:00 Temperature 98.1 F Pulse Rate 70 66 Respiratory 18 18 Rate Blood Pressure 171/81 135/69 O2 Sat by Pulse 96 97 Oximetry Medical Decision Making - Medical Decision Making Was pt. sent in by a medical professional or institution (, PA, REPORTING ANALYST, urgent care, hospital, or halfway...) When possible be specific @ -No Did you speak to anyone other than the patient for history (EMS, parent, family, police, friend...)? What history was obtained from this source @ -No Did you review nursing and triage notes (agree or disagree)? Why? @ -I reviewed and agree with nursing and triage notes Were old charts reviewed (outside hosp., previous admission, EMS record, old EKG, old radiological studies, urgent care reports/EKG's, halfway records)? Report findings @ -No old charts were reviewed Differential Diagnosis (chest pain, altered mental status, abdominal pain women, abdominal pain men, vaginal bleeding, weakness, fever, dyspnea, syncope, headache, dizziness, GI bleed, back pain, seizure, CVA, palpatations, mental health, musculoskeletal)? @ -[Differential Syncope: Valvular disease, hypertrophic cardiomyopathy, pulmonary embolism, tamponade, tachycardia, bradycardia, WA, hypovolemia, hemorrhage, dissection, anemia, intracranial hemorrhage, seizure, hypoglycemia, carbon monoxide poisoning, this is not meant to be an all-inclusive list. EKG interpreted by me (3pts min.). @Sinus rhythm low voltage rate is 72, SD interval 210, QRS duration 87, QTC 391, no ST segment elevation. X-rays interpreted by me (1pt min.). @ -None done CT interpreted by me (1pt min.). @ -Head CT negative for intracranial hemorrhage or mass effect, no cervical fracture or subluxation U/S interpreted by me (1pt. min.). @ -None done What testing was considered but not performed or refused? (CT, X-rays, U/S, labs)? Why? @ -None What meds were considered but not given or refused? Why? @ -None Did you discuss the management of the patient with other professionals (professionals i.e. , PA, REPORTING ANALYST, lab, RT, psych nurse, social services analyst, human resources assistant manager, teacher, client sales and service officer, pillowcase maker)? Give summary @ -No Was smoking cessation discussed for >3mins.? @ -No Was critical care preformed (if so, how long)? @ -No Were there social determinants of health that impacted care today? How? (Homelessness, low income, unemployed, alcoholism, drug addiction, transportation, low edu. Level, literacy, decrease access to med. care, long-term, rehab)? @ -No Was there de-escalation of care discussed even if they declined (Discuss DNR or withdrawal of care, Hospice)? DNR status @ -No What co-morbidities impacted this encounter? (DM, HTN, Smoking, COPD, CAD, Cancer, CVA, ARF, Chemo, Hep., AIDS, mental health diagnosis, sleep apnea, morbid obesity)? @ - Was patient admitted / discharged? Hospital course, mention meds given and rout e, prescriptions, significant lab abnormalities, going to OR and other pertinent info. @ -[87-year-old female with likely syncopal episode, minor head injury. Head CT negative for scleral hemorrhage or mass effect per patient is in sinus rhythm. She has no complaints. She is eager for discharge. She has normal CBC, normal CMP. Undiagnosed new problem with uncertain prognosis? @ -No Drug Therapy requiring intensive monitoring for toxicity (Heparin, Nitro, Insulin, Cardizem)? @ -No Were any procedures done? @ -No Diagnosis/symptom? @ -[Syncope Acute, or Chronic, or Acute on Chronic? @ Acute Uncomplicated (without systemic symptoms) or Complicated (systemic symptoms)? @ -default Side effects of treatment? @ -No Exacerbation, Progression, or Severe Exacerbation? @ -No Poses a threat to life or bodily function? How? (Chest pain, USA, WA, pneumonia, PE, COPD, DKA, ARF, appy, cholecystitis, CVA, Diverticulitis, Homicidal, Suicidal, threat to staff... and all critical care pts) @ -Yes, arrhythmia - Lab Data Result diagrams: 02/12/23 12:10 02/12/23 12:10 Lab Results 02/12/23 02/12/23 Range/Units 12:10 12:10 WBC 8.9 (3.8-10.6) k/uL RBC 4.54 (3.80-5.40) m/uL Hgb 14.3 (11.4-16.0) gm/dL Hct 42.8 (34.0-46.0) % MCV 94.1 (80.0-100.0) fL MCH 31.5 (25.0-35.0) pg MCHC 33.5 (31.0-37.0) g/dL RDW 13.4 (11.5-15.5) % Plt Count 191 (150-450) k/uL MPV 8.3 Neutrophils % 75 % Lymphocytes % 18 % Monocytes % 4 % Eosinophils % 1 % Basophils % 0 % Neutrophils # 6.7 (1.3-7.7) k/uL Lymphocytes # 1.6 (1.0-4.8) k/uL Monocytes # 0.4 (0-1.0) k/uL Eosinophils # 0.1 (0-0.7) k/uL Basophils # 0.0 (0-0.2) k/uL Sodium 137 (137-145) mmol/L Potassium 4.5 (3.5-5.1) mmol/L Chloride 105 (98-107) mmol/L Carbon Dioxide 24 (22-30) mmol/L Anion Gap 8 mmol/L BUN 19 H (7-17) mg/dL Creatinine 0.89 (0.52-1.04) mg/dL Est GFR (CKD-EPI)AfAm 68 (>60 ml/min/1.73 sqM) Est GFR (CKD-EPI)NonAf 59 (>60 ml/min/1.73 sqM) Glucose 115 H (74-99) mg/dL Calcium 9.4 (8.4-10.2) mg/dL Total Bilirubin 0.9 (0.2-1.3) mg/dL AST 28 (14-36) U/L ALT 21 (4-34) U/L Alkaline Phosphatase 69 (38-126) U/L Total Protein 7.2 (6.3-8.2) g/dL Albumin 4.3 (3.5-5.0) g/dL Disposition Clinical Impression: Syncope Disposition: HOME SELF-CARE Condition: Good Instructions (If sedation given, give patient instructions): Syncope (ED) Is patient prescribed a controlled substance at d/c from ED?: No Referrals: None,Stated [REFERRING] - 1-2 days Time of Disposition: 13:04
--- NOTE | 2023-02-12 12:20 | CT ---
EXAMINATION TYPE: CT brain ruben zhao con DATE OF EXAM: 02/12/2023 COMPARISON: None HISTORY: syncope CT DLP: 1338.[address] of the brain was performed. The ventricles, basal cisterns and sulci overlying the cerebral convexities demonstrate mild enlargem ent. There is no evidence for intracranial hemorrhage or sulcal effacement. There is decreased attenuatio n about the periventricular white matter and deep white matter of both cerebral hemispheres, compatib le with chronic small vessel ischemia. No mass effects are seen. If symptoms persist consider MRI. Osseous calvarium is intact. IMPRESSION: 1. Age related atrophic and chronic small vessel ischemic change without acute intracranial process seen at this time. CT Cervical Spine: Unenhanced CT of the cervical spine was performed with bone and soft tissue window settings submitted . Coronal and sagittal reconstruction is obtained. There is normal alignment and prevertebral soft tissues. No evidence for acute cervical fracture . Scattered degenerative disc disease and spondylosis. Biapical scarring. IMPRESSION: 1. No evidence for acute fracture or subluxation of the cervical spine.
[2023-02-12 12:33] LABS: Basophils % (A) 0 %; Eosinophils # (A) 0.1 k/uL (0-0.7); Eosinophils % (A) 1 %; HCT 42.8 % (34.0-46.0); HGB 14.3 gm/dL (11.4-16.0); Lymphocytes # (A) 1.6 k/uL (1.0-4.8); Lymphocytes % (A) 18 %; MCH 31.5 pg (25.0-35.0); MCHC 33.5 g/dL (31.0-37.0); MCV 94.1 fL (80.0-100.0); Mean Platelet Volume 8.3; Monocytes # (A) 0.4 k/uL (0-1.0); Monocytes % (A) 4 %; Neutrophils # (A) 6.7 k/uL (1.3-7.7); Neutrophils % (A) 75 %; Platelet Count 191 k/uL (150-450); RBC 4.54 m/uL (3.80-5.40); RDW 13.4 % (11.5-15.5); WBC 8.9 k/uL (3.8-10.6)
[2023-02-12 12:50] LABS: ALT 21 U/L (4-34); AST 28 U/L (14-36); African American GFR (CKD) 68 (>60 ml/min/1.73 sqM); Albumin 4.3 g/dL (3.5-5.0); Alkaline Phosphatase 69 U/L (38-126); Anion Gap 8 mmol/L; Blood Urea Nitrogen 19 mg/dL (7-17); Calcium 9.4 mg/dL (8.4-10.2); Carbon Dioxide 24 mmol/L (22-30); Chloride 105 mmol/L (98-107); Glucose 115 mg/dL (74-99); Non-African American GFR(CKD) 59 (>60 ml/min/1.73 sqM); Potassium 4.5 mmol/L (3.5-5.1); Sodium 137 mmol/L (137-145); Total Bilirubin 0.9 mg/dL (0.2-1.3); Total Protein 7.2 g/dL (6.3-8.2)
[2023-02-12 13:01] VITALS: BP 135/69; PULSE 66
== END 2023-02-12 13:57 | disposition home or self-care (01) ==
LOC: EC 11:33
DX: R55 Syncope and collapse (principal); K21.9 Gastro-esophageal reflux disease without esophagitis; M19.90 Unspecified osteoarthritis, unspecified site; E07.9 Disorder of thyroid, unspecified; Z88.5 Allergy status to narcotic agent; Z88.8 Allergy status to other drugs, medicaments and biological substances; Z79.82 Long term (current) use of aspirin; Z79.890 Hormone replacement therapy; Z79.899 Other long term (current) drug therapy; W18.30XA Fall on same level, unspecified, initial encounter
CPT/HCPCS: 36415; 70450; 72125; 80053; 85025; 93005; 96360; 96361; 99285

== ENCOUNTER → 2023-03-20 | Outpatient (CLI) | payer MEDICARE ==
--- NOTE | 2023-03-20 14:36 | P.PN ---
Subjective Progress Note Date: 03/20/23 Principal diagnosis: left breast cancer stage IA left breast cancer/ April 2018 Jasmine is an 87-year-old white female who is status post left breast mastectomy in April 2018. This was for a stage IA breast cancer. Postprocedure she developed a seroma which required multiple aspirations as well as a CT-guided insertion of a drain which was in place for approximately 3 weeks. The seroma has resolved. She did receive 4 weeks of physical therapy 3 times a week to improve the mobility of the left arm. At this time she has no pain. She has no evidence of recurrence that she is concerned about. She has good mobility of the arm. She is presently taking anastrozole under the direction of Dr. Zambrano. She did not have any radiation therapy or chemotherapy. Her last right breast mammogram was on 03-20-23, this was benign BIRADS 2 and recommendation to have repeat mammogram in 1 year. The patient has no lumps or masses in her right breast. At this time the left breast prostheses she is using is a somewhat fiberfill prosthesis which is comfortable for her. She saw Dr. Germain and was started on alendronate. This is for osteopena. She was concerned about the side effects. She is not complaining of any lumps masses or nodules in her right breast or her left chest wall. Family history: neice: Breast cancer patient: breast cancer, squamous and basal cell cancer Hormonal history: Menarche: 11 , first at 26, breast fed: no Menopause:58 BCP: 2 years hormones: none, presently taking anastrozole Surgical history: 1. Left lumpectomy followed by left mastectomy 2. cataract surgery 3. tonsil 4. skin cancer on face Medical history: 1. osterpeina 2. HTN 3. skipped heart beat, going to have a cardiac moniter implanted Social history: Smoking: Negative Alcohol: Negative Drugs: Negative HEENT: Glasses, Hearing aids Lungs: Negative Cardiovascular: HTN GI: Negative : Negative Musculoskeletal: Negative Skin: skin cancer - Constitutional Constitutional: Reports sweats occasional - EENT Eyes: denies blurred vision, denies pain Ears: bilateral: decreased hearing Ears, nose, mouth and throat: Denies headache, Denies sore throat - Breasts Breasts: bilateral: as per HPI, absent: no nipple discharge, pain, skin changes, swelling - Cardiovascular Cardiovascular: Denies chest pain, Denies shortness of breath - Respiratory Respiratory: Denies cough - Gastrointestinal Comment: Occasional reflux - Genitourinary (Female) Genitourinary: Denies dysuria, Denies hematuria - Menstruation Menstruation: Reports post hysterectomy - Musculoskeletal Musculoskeletal: Denies myalgias - Integumentary Comment: skin cancer in past - Neurological Neurological: Denies numbness, Denies weakness - Psychiatric Psychiatric: Denies anxiety, Denies depression - Endocrine Comment: hypothyroid Endocrine: Denies fatigue, Denies weight change - Hematologic/Lymphatic Comment: baby aspirin Objective - Constitutional General appearance: Present: cooperative - EENT Eyes: Present: EOMI ENT: Present: hearing grossly normal - Neck Neck: Present: normal ROM - Respiratory Respiratory: bilateral: CTA - Cardiovascular Rhythm: regular Heart sounds: normal: S1, S2 - Integumentary Integumentary: Present: normal turgor - Musculoskeletal Musculoskeletal: Present: gait normal - Psychiatric Psychiatric: Present: A&O x's 3, appropriate affect, intact judgment & insight - Additional findings Additional findings: Breast Exam: BRA: 40A inspection: Left chest wall incision clean and dry, right breast grade 2/3 ptosis Palpation: Right breast: Multiple positional exam fibrocystic changes no dominant masses or nodules of concern Right axilla: No adenopathy of concern Left chest wall: No evidence of any recurrent cancer Left axilla: No adenopathy of concern Assessment and Plan Assessment: Impression: 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 Germain Plan: Lateral mammogram in 1 year with examination at that time Right breast mammogram February 2024 Continue to follow with medical oncology on anastrozole; follow up with Dr. Germain in May Cc: Lester
[2023-03-20 14:41] VITALS: BP 149/75; PULSE 80; RESP 16; TEMP 98.7
== END ==
LOC: WWCWWP 14:26
PROVIDERS: ATTEND Surgery
DX: C50.912 Malignant neoplasm of unspecified site of left female breast (principal); I10 Essential (primary) hypertension; Z85.3 Personal history of malignant neoplasm of breast; Z71.2 Person consulting for explanation of examination or test findings; Z80.3 Family history of malignant neoplasm of breast; Z91.048 Other nonmedicinal substance allergy status; Z88.5 Allergy status to narcotic agent; Z88.8 Allergy status to other drugs, medicaments and biological substances; Z79.899 Other long term (current) drug therapy

== ENCOUNTER → 2023-03-20 | Outpatient (CLI) | payer MEDICARE ==
--- NOTE | 2023-03-20 13:13 | MM ---
Reason for Exam: Additional evaluation requested from prior study. Last mammogram was performed 1 year(s) and 2 month(s) ago. Patient History: Menarche at age 10. First Full-Term at age 28. Postmenopausal. Breast cancer, left, age 82. Hormonal Contraceptives for 2 years from age 29 until age 31. 1988, Benign Excisional Biopsy on the left side. 05/19/2018, Mastectomy on the Left side. 05/05/2018, Lumpectomy on the Left side. 05/05/2018, Malignant Core Biopsy on the left side. 04/08/2018, Malignant Core Biopsy on the left side. Niece had breast cancer, age 42. Prior Study Comparison: 11/07/2016 Bilateral Screening Mammogram, [facility]. 11/10/2017 Bilateral Diagnostic Mammogram, [facility]. 03/30/2018 Left Diagnostic Mammogram, [facility]. 04/08/2018 Left Diagnostic Mammogram, [facility]. 12/03/2018 Right Diagnostic Mammogram, [facility]. 12/10/2019 Right Diagnostic Mammogram, [facility]. 12/13/2020 Right Diagnostic Mammogram, [facility]. 01/15/2022 Right MG 3D diag mammo w/cad RT, [facility]. Tissue Density: Right: The breast tissue is heterogeneously dense. This may lower the sensitivity of mammography. Findings: Analyzed By CAD. Stable asymmetric density upper outer right breast and back to 2019. Benign calcifications noted without suspicious cluster. No suspicious masses are evident. Overall Assessment: Benign, BI-RAD 2 Management: Diagnostic Mammogram of the right breast in 1 year. . Results were given to the patient verbally at the time of exam. Patient should continue monthly self-breast exams. A clinical breast exam by your physician is recommended on an annual basis. This exam should not preclude additional follow-up of suspicious palpable abnormalities. Note on Shanice scores and lifetime risk: 1. A Shanice score greater than 3% is considered moderate risk. If this is the case, consider specialist referral to assess eligibility for a risk reducing agent. 2. If overall lifetime risk for the development of breast cancer is 20% or higher, the patient may qualify for future screening with alternating mammogram and breast MRI. Electronically signed and approved by: Marcelino Springer M.D. Radiologis
== END | disposition home or self-care (01) ==
LOC: RADMAMWWP 12:42
PROVIDERS: ATTEND Surgery
DX: R92.8 Other abnormal and inconclusive findings on diagnostic imaging of breast (principal); Z78.0 Asymptomatic menopausal state; Z85.3 Personal history of malignant neoplasm of breast
CPT/HCPCS: 77065; G0279; 77061

== ENCOUNTER 2023-04-16 07:00 | Day surgery (SDC) | payer MEDICARE ==
[~2023-04-16 07:00] MED LIST changes: -HEPARIN SODIUM,PORCINE 5,000 UNIT/ML 1 ML VIAL SQ ONE; -Pre Op ABX Message 1 EACH MISC MISCELLANE ONE; +SODIUM CHLORIDE 0.9% 1,000 ML IV SCH
[2023-04-16 07:38] VITALS: RESP 18; TEMP 98.3
[2023-04-16] MEDS ORDERED: IV FLUID CONTINUATION 1,000 ML IV ONE (09:19)
[2023-04-16] MEDS ORDERED: LIDOCAINE 1% INJ 10MG/ML (20 ML MDV) SQ ONE (10:32)
--- NOTE | 2023-04-16 10:46 | P.EPPROC ---
- EP Procedure Note Electrophysiology Procedure Note: Diagnosis Recurrent syncope and dizziness Twelve-lead EKG shows sinus mechanism normal KS interval narrow QRS normal ST segments Tilt table test per protocol Baseline blood pressure 138/71 mmHg by ClearSite Pulse rate in the 60s and 70s Cuff blood pressures were very high No change in heart rate and blood pressure No symptoms Impression Hypertension Recurrent syncope Normal. EKG No evidence for dysautonomia neurocardiogenic syncope Plan Implantation of loop monitor Careful home blood pressure monitoring
--- NOTE | 2023-04-16 10:47 | P.EPPROC ---
- EP Procedure Note Electrophysiology Procedure Note: Loop monitor implant Primary physicians: [employer] [facility] Supervisor: Dr. Palacios Indication: Recurrent syncope and presyncope Patient was brought to the EP lab in a fasting state. Written informed consent was obtained prior to the procedure. The left pectoral area was prepped and draped per protocol. Intravenous antibiotic was administered preoperatively. A subcutaneous Loop monitor was implanted successfully and the wound was closed per protocol. The device was programmed to detect significant [place]- arrhythmic and tachy-arrhythmic events, per protocol. Device and programming details: Syncope protocol
[2023-04-16 11:05] VITALS: BP 151/77; PULSE 70
== END 2023-04-16 11:29 | disposition home or self-care (01) ==
LOC: CATHEP 07:00
PROVIDERS: ATTEND Internal Medicine Clinical Cardiac Electrophysiology
DX: R55 Syncope and collapse (principal); E78.5 Hyperlipidemia, unspecified; Z82.49 Family history of ischemic heart disease and other diseases of the circulatory system; Z88.5 Allergy status to narcotic agent; Z79.82 Long term (current) use of aspirin; Z79.899 Other long term (current) drug therapy
CPT/HCPCS: 93660; 33285; C1764; J0690; J2001

== ENCOUNTER → 2024-03-25 | Outpatient (CLI) | payer MEDICARE ==
--- NOTE | 2024-03-25 11:14 | MM ---
Reason for Exam: Additional evaluation requested from prior study. Last screening mammogram was performed 12 month(s) ago. Patient History: Menarche at age 10. First Full-Term at age 28. Postmenopausal. Breast cancer, left, age 82. Hormonal Contraceptives for 2 years from age 29 until age 31. 1988, Benign Excisional Biopsy on the left side. 05/19/2018, Mastectomy on the Left side. 05/05/2018, Lumpectomy on the Left side. 05/05/2018, Malignant Core Biopsy on the left side. 04/08/2018, Malignant Core Biopsy on the left side. Niece had breast cancer, age 42. Prior Study Comparison: 12/13/2020 Right Diagnostic Mammogram, [facility]. 01/15/2022 Right MG 3D diag mammo w/cad RT, [facility]. 03/20/2023 Right MG 3D diag mammo w/cad RT, [facility]. Tissue Density: Right: There are scattered areas of fibroglandular density. Findings: Analyzed By CAD. The pattern is stable Focal asymmetry within the 11 to 12:00 position is stable. Multiple benign round calcifications are present. No suspicious groups of microcalcifications, spiculated or lobular masses, architectural distortion or other secondary signs of malignancy are mammographically apparent. Overall Assessment: Benign, BI-RAD 2 Management: Screening Mammogram of the right breast in 1 year. A negative mammogram report should not preclude additional follow up of suspicious palpable abnormalities. Patient should continue monthly self breast exam. A clinical breast exam by your physician is recommended on an annual basis and results should be correlated with mammographic findings. Note on Shanice scores and lifetime risk: 1. A Shanice score greater than 3% is considered moderate risk. If this is the case, consider specialist referral to assess eligibility for a risk reducing agent. 2. If overall lifetime risk for the development of breast cancer is 20% or higher, the patient may qualify for future screening with alternating mammogram and breast MRI. [facility], , 03/25/2024 11:10 AM. Electronically signed and approved by: Levi Lr D.O. Radiologis
== END | disposition home or self-care (01) ==
LOC: RADMAMWWP 10:48
PROVIDERS: ATTEND Surgery
DX: Z85.3 Personal history of malignant neoplasm of breast
CPT/HCPCS: 77061; 77065

== ENCOUNTER → 2024-05-13 | Outpatient (CLI) | payer MEDICARE ==
--- NOTE | 2024-05-13 12:47 | P.PN ---
Subjective Progress Note Date: 05/13/24 05-13-24 Principal diagnosis: left breast cancer stage IA left breast cancer/ April 2018 Jasmine is an 88-year-old white female who is status post left breast mastectomy in April 2018. This was for a stage IA breast cancer. Postprocedure she developed a seroma which required multiple aspirations as well as a CT-guided insertion of a drain which was in place for approximately 3 weeks. The seroma has resolved. She did receive 4 weeks of physical therapy 3 times a week to improve the mobility of the left arm. At this time she has no pain. She has no evidence of recurrence that she is concerned about. She has good mobility of the arm. She is presently taking anastrozole under the direction of Dr. Zambrano. She did not have any radiation therapy or chemotherapy. Her last right breast mammogram was on 03-25-24, this was benign BIRADS 2 and recommendation to have repeat mammogram in 1 year. This was personally reviewed. The patient has no lumps or masses in her right breast. At this time the left breast prostheses she is using is a somewhat fiberfill prosthesis which is comfortable for her. The anastrozole last year. She is no longer taking aldronate. . She is not complaining of any lumps masses or nodules in her right breast or her left chest wall. Family history: neice: Breast cancer patient: breast cancer, squamous and basal cell cancer Hormonal history: Menarche: 11 , first at 26, breast fed: no Menopause:58 BCP: 2 years hormones: none, presently taking anastrozole Surgical history: 1. Left lumpectomy followed by left mastectomy 2. cataract surgery 3. tonsil 4. skin cancer on face Medical history: 1. osterpeina 2. HTN 3. skipped heart beat, had a loop cardiac moniter implanted Social history: Smoking: Negative Alcohol: Negative Drugs: Negative HEENT: Glasses, Hearing aids Lungs: Negative Cardiovascular: HTN GI: Negative : Negative Musculoskeletal: Negative Skin: skin cancer - Constitutional Constitutional: Reports sweats occasional - EENT Eyes: denies blurred vision, denies pain Ears: bilateral: decreased hearing Ears, nose, mouth and throat: Denies headache, Denies sore throat - Breasts Breasts: bilateral: as per HPI, absent: no nipple discharge, pain, skin changes, swelling - Cardiovascular Cardiovascular: Denies chest pain, Denies shortness of breath - Respiratory Respiratory: Denies cough - Gastrointestinal Comment: Occasional reflux - Genitourinary (Female) Genitourinary: Denies dysuria, Denies hematuria - Menstruation Menstruation: Reports post hysterectomy - Musculoskeletal Musculoskeletal: Denies myalgias - Integumentary Comment: skin cancer in past - Neurological Neurological: Denies numbness, Denies weakness - Psychiatric Psychiatric: Denies anxiety, Denies depression - Endocrine Comment: hypothyroid Endocrine: Denies fatigue, Denies weight change - Hematologic/Lymphatic Comment: baby aspirin Objective - Constitutional General appearance: Present: cooperative - EENT Eyes: Present: EOMI ENT: Present: hearing grossly normal - Neck Neck: Present: normal ROM - Respiratory Respiratory: bilateral: CTA - Cardiovascular Rhythm: regular Heart sounds: normal: S1, S2 - Integumentary Integumentary: Present: normal turgor - Psychiatric Psychiatric: Present: A&O x's 3, appropriate affect, intact judgment & insight - Additional findings Additional findings: Breast Exam: BRA: 40A inspection: Left chest wall incision clean and dry, right breast grade 2/3 ptosis Palpation: Right breast: Multiple positional exam fibrocystic changes no dominant masses or nodules of concern Right axilla: No adenopathy of concern Left chest wall: No evidence of any recurrent cancer Left axilla: No adenopathy of concern Assessment and Plan Assessment: Impression: Left breast invasive ductal carcinoma 2018 no evidence of recurrence Patient stopped anastrozole to following with Dr. Germain Plan: Right breast mammogram February 2025 with appointment at that time Continue to follow with medical oncology Cc: Lester
[2024-05-13 12:49] VITALS: BP 130/76; PULSE 77; RESP 17; TEMP 97.4
== END ==
LOC: WWCWWP 11:59
PROVIDERS: ATTEND Surgery
DX: Z08 Encounter for follow-up examination after completed treatment for malignant neoplasm (principal); Z85.3 Personal history of malignant neoplasm of breast; Z80.3 Family history of malignant neoplasm of breast; Z88.5 Allergy status to narcotic agent; Z88.8 Allergy status to other drugs, medicaments and biological substances; Z91.048 Other nonmedicinal substance allergy status; Z90.12 Acquired absence of left breast and nipple

== ENCOUNTER → 2024-07-05 | Outpatient (CLI) | payer MEDICARE ==
--- NOTE | 2024-07-05 11:20 | US ---
EXAMINATION TYPE: US kidneys/renal and bladder DATE OF EXAM: 07/05/2024 COMPARISON: CT abdomen and renal ultrasound 2019 CLINICAL INDICATION: Female, 89 years old with history of [id number] CKD; CKD TECHNIQUE: Grayscale imaging of the bilateral kidneys and urinary bladder: FINDINGS: EXAM MEASUREMENTS: Right Kidney: 9.7x5.0x5.2 cm Left Kidney: 9.9x5.2x4.8 cm Right Kidney: wnl, no evidence for hydronephrosis, mass or renal calculus. Left Kidney: cyst again seen: 2.2x2.2x2.5cm Bladder: wnl, not fully distended Bilateral Jets seen: Yes There is no evidence for hydronephrosis at this point in time. No nephrolithiasis is seen. Redemonst ration of simple 2.5 cm thin-walled cyst in the left kidney. The urinary bladder is adequately diste nded. exam limited by bowel gas and body habitus IMPRESSION: Suboptimal study. No hydronephrosis is noted bilaterally however. [facility], , 07/05/2024 11:17 AM
== END | disposition home or self-care (01) ==
LOC: RADUSWWP 10:34
PROVIDERS: ATTEND Family Medicine
DX: N18.30 Chronic kidney disease, stage 3 unspecified (principal); N28.1 Cyst of kidney, acquired
CPT/HCPCS: 76770

== ENCOUNTER → 2024-09-15 | Outpatient (CLI) | payer MEDICARE ==
[2024-09-15 15:59] LABS: ALT 22 U/L (8-44); AST 25 U/L (13-35); Albumin 4.5 g/dL (3.8-4.9); Alkaline Phosphatase 80 U/L (41-126); Calcium 10.2 mg/dL (8.7-10.3); Carbon Dioxide 27.3 mmol/L (21.6-31.8); Chloride 102 mmol/L (96-109); Globulin 2.5 g/dL (1.6-3.3); Glucose 148 mg/dL (70-110); Magnesium 2.1 mg/dL (1.5-2.4); Phosphorus 3.2 mg/dL (2.4-5.1); Potassium 4.6 mmol/L (3.5-5.5); Sodium 139 mmol/L (135-145); Total Bilirubin 0.6 mg/dL (0.3-1.2)
[2024-09-15 16:00] LABS: Basophils # (A) 0.04 X 10*3/uL (0.00-0.10); Basophils % (A) 0.5 %; Eosinophils # (A) 0.11 X 10*3/uL (0.04-0.35); Eosinophils % (A) 1.4 %; HCT 47.4 % (37.2-46.3); HGB 15.4 g/dL (12.0-15.0); Lymphocytes # (A) 2.15 X 10*3/uL (0.90-5.00); Lymphocytes % (A) 27.6 %; MCH 30.8 pg (27.0-32.0); MCHC 32.5 g/dL (32.0-37.0); MCV 94.8 FL (80.0-97.0); Mean Platelet Volume 11.1 FL (9.5-12.2); Monocytes # (A) 0.36 X 10*3/uL (0.20-1.00); Monocytes % (A) 4.6 %; NRBC Per 100 WBC 0 X 10*3/uL (0.00-0.01); Neutrophils # (A) 5.09 X 10*3/uL (1.80-7.70); Neutrophils % (A) 65.4 %; Platelet Count 217 X 10*3/uL (140-440); RDW 12.3 % (11.5-14.5); WBC 7.79 X 10*3/uL (4.50-10.00)
[2024-09-15 16:50] LABS: Appearance,Urine Clear (Clear); Bilirubin,Urine Negative (Negative); Blood,Urine Negative (Negative); Color,Urine Dark Yellow (Yellow); Ketones,Urine Negative (Negative); Nitrite,Urine Negative (Negative); PH, Urine 5.5; Specific Gravity,Urine 1.018 (1.001-1.030); Urobilinogen,Urine 0.2 E.U./DL
[2024-09-15 17:07] LABS: Bacteria,Urine None Seen (None Seen)
== END | disposition home or self-care (01) ==
LOC: LABWHC1 09:42
PROVIDERS: ATTEND Internal Medicine
DX: N18.9 Chronic kidney disease, unspecified (principal)
CPT/HCPCS: 36415; 80053; 81001; 82043; 82570; 83735; 84100; 85025